=== PATIENT | male | born 1950 | race Caucasian/White ===

== ENCOUNTER 2021-02-23 07:29 | Outpatient (CLI) | payer MEDICARE, SELFPAY ==
--- NOTE | 2021-02-23 07:38 | USCV_ITS ---
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 Features of extensive arterio sclerosis Dr Drea Koehler MD [facility] (Electronically Signed) Final Date: 23 February 2021 20:16 S
== END 2021-02-23 07:30 | disposition home or self-care (01) ==
LOC: RAD 07:33
PROVIDERS: PCP General Practice; Visit Provider Family Medicine
DX: R09.89 Other specified symptoms and signs involving the circulatory and respiratory systems (principal)
CPT/HCPCS: 93922

== ENCOUNTER 2021-10-02 10:35 | Inpatient (IN) | payer MEDICARE, SELFPAY ==
[2021-10-02] VITALS (10 sets, daily range): BP systolic 112–149; BP diastolic 69–81; PULSE 48–58; RESP 14–22; TEMP 36.5–36.7; O2SAT 91–95; BMI 40.7; BMI 41.3
--- NOTE | 2021-10-02 10:53 | ECG_ITS ---
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 Measurements Intervals [place] Rate: 52 P: 44 AK: 164 QRS: -16 QRSD: 103 T: 28 QT: 416 QTc: 387 Interpretive Statements SINUS BRADYCARDIA INTERPRETATION BASED ON A DEFAULT AGE OF 40 YEARS No previous ECG available for comparison Electronically Signed On 10-03-2021 0:44:44 CDT by Drea Koehler M.D. [email or web address] Systemsmerit health centralScoutziechildren's hospital of columbusAMEC/store/Om/[id number]/[id number]
--- NOTE | 2021-10-02 10:55 | XRR_ITS ---
PROCEDURE INFORMATION: Exam: XR Chest Exam date and time: 10/02/2021 11:06 AM Age: 71 years old Clinical indication: Pain; Angina pectoris; Additional info: Chest pain TECHNIQUE: Imaging protocol: Radiologic exam of the chest. Views: 1 view. COMPARISON: CT cervical spin wo con* [id number] 09/28/2016 2:23 PM FINDINGS: Lungs: Unremarkable. No consolidation. Pleural spaces: Unremarkable. No pleural effusion. No pneumothorax. Heart/Mediastinum: Unremarkable. No cardiomegaly. Bones/joints: Unremarkable. XR/XR chest 1V portable [id number] IMPRESSION: No acute findings.
[2021-10-02 11:16] LABS: Basophils # 0.1 10^3/uL (0.0-0.1); Basophils % 1.2 %; Eosinophils # 0.6 10^3/uL (0.0-0.8); Eosinophils % 7.5 %; Hematocrit 47.6 % (42.0-52.0); Lymphocytes # 1.6 10^3/uL (0.8-4.8); Mean Corpuscular HGB Conc 33.6 g/dL (30.0-36.0); Mean Corpuscular Hemoglobin 29.5 pg (28.0-34.0); Mean Corpuscular Volume 87.8 fl (80-94); Mean Platelet Volume 10.5 fL (7.4-10.4); Monocytes # 0.7 10^3/uL (0.2-0.9); Monocytes % 8.9 %; Neutrophils # 4.51 10^3/uL (1.8-7.7); Neutrophils % 60.9 %; Nucleated Red Blood Cells % 0 %; Platelet Count 197 10^3/cmm (130-400); Red Blood Count 5.42 10^6/uL (4.1-5.3); Red Cell Distribution Width 13.2 % (12.1-15.1); White Blood Count 7.4 10^3/uL (4.0-10.0)
[2021-10-02 11:37] LABS: Partial Thromboplastin Time 27.6 SECONDS (23.9-36.7)
[2021-10-02 11:59] LABS: Alanine Aminotransferase 32 U/L (0-41); Albumin Level 4.6 g/dL (3.5-5.2); Alkaline Phosphatase 79 IU/L (40-130); Aspartate Amino Transferase 23 U/L (0-40); Blood Urea Nitrogen 13 mg/dL (8-23); Calcium 9.8 mg/dL (8.5-10.5); Carbon Dioxide 24 mmol/L (22-29); Chloride 101 mmol/L (98-107); Globulin 3.1 g/dL (1.3-4.6); Glomerular Filtration Rate 73.9 mL/min (90-130); Glucose 160 mg/dL (65-115); Osmolality Calculated 290 mOsm/kg (285-295); Sodium 138 mmol/L (136-145); Total Bilirubin 0.6 mg/dL (0.15-1.2); Total Protein 7.7 g/dL (6.6-8.7)
[2021-10-02 12:02] LABS: Anion Gap 17.1 (5-19); Potassium 4.1 mmol/L (3.5-5.1); Troponin(5th) Baseline 16 ng/L (0-15)
--- NOTE | 2021-10-02 12:38 | PC.PHAR ---
pt states he takes care of his own medications-rx filled 07/29/21 90d/s for amlodipine 10mg daily another rx filled 09/22/21 90d/s for 2.5mg daily pt states 2.5mg was filled on accident pt states taking 10mg daily-notes are made in the pharmacy comments
--- NOTE | 2021-10-02 12:55 | ECG_ITS ---
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 Measurements Intervals [place] Rate: 47 P: 42 ND: 172 QRS: -1 QRSD: 107 T: 33 QT: 464 QTc: 412 Interpretive Statements SINUS BRADYCARDIA Compared to ECG 10/02/2021 14:13:40 No significant changes Electronically Signed On 10-03-2021 19:03:57 CDT by Sanju Taylor M.D. [email or web address] Divgreenwood leflore hospitalMeileleeast liverpool city hospitalCyprotex/store/OM/[id number]
--- NOTE | 2021-10-02 13:12 | W.ED.CHESTPA ---
HPI - Chest Pain General: Chief Complaint: Chest Pain Stated Complaint: chest pain Time Seen by Provider: 10/02/21 10:53 Source: patient Mode of arrival: ambulatory History of Present Illness: 71-year-old male presents to the emergency room with complaints of left-sided chest pain x4 days. No fever sweats chills cough congestion or shortness of breath he has noticed that with activity it is little worse with rest it is somewhat better. There is no radiation of the pain. He has no known history of coronary artery disease MD complaint: chest pain Onset (ago): day(s) (4) Timing of current episode: episodic Onset: during exertion Pain radiation: left arm Severity: moderate Quality: heaviness Relieving factors: rest Exacerbating factors: nothing Associated symptoms: Reports dyspnea; Deny abdominal pain, diaphoresis, fever(s), leg edema, nausea, palpitations, sense of impending doom, syncope or vomiting Treatment prior to arrival: none Risk Factors: Coronary artery disease risk factors: diabetes, smoking history, hyperlipidemia and hypertension Review of Systems Const: Denies: fever(s), chills, fatigue, malaise or diaphoresis ENMT: Denies: throat pain, ear or mastoid pain, nasal discharge or nasal congestion Card: Reports: chest pain; Denies: palpitations, irregular heart rhythm, edema or syncope Resp: Reports: dyspnea; Denies: productive cough or non-productive cough GI: Denies: abdominal pain, nausea or vomiting : Denies: flank pain, difficulty urinating, dysuria, urinary frequency or urinary urgency Skin/Breast: Denies: rash or pruritus [facility] PFSH: Medical History Diabetes mellitus Hyperlipidemia Hypertension Hypothyroidism Social History Smoking and tobacco status: never smoked Alcohol intake: never Physical Exam Const: GENERAL APPEARANCE: cooperative and comfortable ORIENTATION/CONSCIOUSNESS: Yes awake, Yes oriented to person, Yes oriented to place and Yes oriented to time HENMT: COMMON NORMALS: normocephalic, atraumatic and hearing grossly normal bilaterally HEAD & SCALP: normocephalic and atraumatic Resp: COMMON NORMALS: normal respiratory effort, No retractions, No use of accessory muscles and clear to auscultation bilaterally AUSCULTATION: clear to auscultation bilaterally Cardio: COMMON NORMALS: regular rate, regular rhythm and No murmurs present (Cardio) RATE: regular rate RHYTHM: regular rhythm GI: COMMON NORMALS: Soft to palpation and No hepatosplenomegaly present AUSCULTATION: Yes normoactive bowel sounds PALPATION: Yes Soft to palpation, No Tenderness to palpation present (GI), No Guarding due to palpation present (GI) and Yes No hepatosplenomegaly present Extremity: COMMON NORMALS: normal to inspection, capillary refill normal, no clubbing, cyanosis or edema, no calf tenderness and no pedal edema Neuro: SENSORIUM/ORIENTATION: Yes oriented to person, Yes oriented to place and Yes oriented to time Skin: COMMON NORMALS: no rashes or lesions noted GENERAL SKIN EXAM: no rashes or lesions noted Course Vital Signs: Vital signs: Vital Signs Temperature 98.1 F 10/02/21 10:45 Pulse Rate 53 L 10/02/21 13:48 Respiratory Rate 16 10/02/21 13:48 Blood Pressure 112/69 10/02/21 13:48 Pulse Oximetry 95 10/02/21 13:48 Oxygen Delivery Me thod 10/02/21 13:48 MDM - Chest Pain Medical Decision Making 71-year-old male he continues to have intermittent chest discomfort and very concerned with his presenting history he has a heart score of 6 or 7. Given that we will go ahead and put him on observation I discussed with Dr. Celis. His second troponin is negative and EKG shows nonspecific changes. He does tell me he had a cardiac stress test about 4 years ago at this facility but I cannot find any old records. Orders written for ops. Medical Records I reviewed the patient's medical records. Lab Data I reviewed the patient's lab results. : 10/02/21 11:04 10/02/21 11:04 Radiology Impressions Chest X-Ray 10/02/21 10:55 IMPRESSION: No acute findings. Laboratory Results WBC 7.4 10^3/uL (4.0-10.0) 10/02/21 11:04 RBC 5.42 10^6/uL (4.1-5.3) H 10/02/21 11:04 Hgb 16.0 g/dL (11.7-16.6) 10/02/21 11:04 Hct 47.6 % (42.0-52.0) 10/02/21 11:04 MCV 87.8 fl (80-94) 10/02/21 11:04 MCH 29.5 pg (28.0-34.0) 10/02/21 11:04 MCHC 33.6 g/dL (30.0-36.0) 10/02/21 11:04 RDW 13.2 % (12.1-15.1) 10/02/21 11:04 Plt Count 197 10^3/cmm (130-400) 10/02/21 11:04 MPV 10.5 fL (7.4-10.4) H 10/02/21 11:04 Neut % (Auto) 60.9 % 10/02/21 11:04 Lymph % (Auto) 21.0 % 10/02/21 11:04 [place] % (Auto) 8.9 % 10/02/21 11:04 Eos % (Auto) 7.5 % 10/02/21 11:04 Baso % (Auto) 1.2 % 10/02/21 11:04 Neut # (Auto) 4.51 10^3/uL (1.8-7.7) 10/02/21 11:04 Lymph # (Auto) 1.6 10^3/uL (0.8-4.8) 10/02/21 11:04 [place] # (Auto) 0.7 10^3/uL (0.2-0.9) 10/02/21 11:04 Eos # (Auto) 0.6 10^3/uL (0.0-0.8) 10/02/21 11:04 Baso # (Auto) 0.1 10^3/uL (0.0-0.1) 10/02/21 11:04 Nucleated RBC % (auto) 0 % 10/02/21 11:04 Nucleated RBCs # 0.0 /100WBC 10/02/21 11:04 PT 12.50 SECONDS (12.1-14.9) 10/02/21 11:04 INR 0.90 (0.8-1.2) 10/02/21 11:04 APTT 27.6 SECONDS (23.9-36.7) 10/02/21 11:04 Sodium 138 mmol/L (136-145) 10/02/21 11:04 Potassium 4.1 mmol/L (3.5-5.1) 10/02/21 11:04 Chloride 101 mmol/L (98-107) 10/02/21 11:04 Carbon Dioxide 24 mmol/L (22-29) 10/02/21 11:04 Anion Gap 17.1 (5-19) 10/02/21 11:04 BUN 13 mg/dL (8-23) 10/02/21 11:04 Creatinine 1.0 mg/dL (0.7-1.2) 10/02/21 11:04 GFR Calculation 73.9 mL/min (90-130) L 10/02/21 11:04 Glucose 160 mg/dL (65-115) H 10/02/21 11:04 Calculated Osmolality 290 mOsm/kg (285-295) 10/02/21 11:04 Calcium 9.8 mg/dL (8.5-10.5) 10/02/21 11:04 Total Bilirubin 0.6 mg/dL (0.15-1.2) 10/02/21 11:04 AST 23 U/L (0-40) 10/02/21 11:04 ALT 32 U/L (0-41) 10/02/21 11:04 Alkaline Phosphatase 79 IU/L (40-130) 10/02/21 11:04 Troponin T Baseline 16 ng/L (0-15) H 10/02/21 11:04 Troponin T 120 Minute 14.09 ng/L (0-15) 10/02/21 12:59 Delta Troponin T -1.91 ABS# (0-10) L 10/02/21 12:59 Total Protein 7.7 g/dL (6.6-8.7) 10/02/21 11:04 Albumin 4.6 g/dL (3.5-5.2) 10/02/21 11:04 Globulin 3.1 g/dL (1.3-4.6) 10/02/21 11:04 Discharge Plan Discharge Prescriptions: No Action atorvastatin 40 mg tablet 40 mg PO QAM bisoprolol-hydrochlorothiazide 10-6.25 mg tablet 1 tab PO QAM Aspir-81 81 mg Tablet,Delayed Release (Dr/Ec) 81 mg PO QAM amlodipine 10 mg tablet 10 mg PO QAM levothyroxine 125 mcg tablet 125 mcg PO QAM niacin 500 mg Tablet 1,750 mg PO DAILY PRN (Reason: unknown) omeprazole 20 mg capsule,delayed release(DR/EC) 20 mg PO BEDTIME metformin 500 mg tablet extended release 24 hr 500 mg PO QAM Referrals: Himanshu Franco MD [Primary Care Provider] - Coding Level of Care Code ED Rubber Compounder Formulator for Chg Fwd Exam Detailed
[2021-10-02 13:36] LABS: Troponin 5 2HR 14.09 ng/L (0-15)
[2021-10-02 13:46] LABS: Troponin 5 2HR Delta -1.91 ABS# (0-10)
--- NOTE | 2021-10-02 14:13 | ECG_ITS ---
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 Measurements Intervals [place] Rate: 45 P: 48 NE: 170 QRS: -6 QRSD: 105 T: 27 QT: 445 QTc: 389 Interpretive Statements SINUS BRADYCARDIA Compared to ECG 10/02/2021 10:43:31 No significant changes Electronically Signed On 10-03-2021 0:57:29 CDT by Drea Koehler M.D. https://[employer].Level 5 Networksmethodist rehabilitation centerEagle Creek Renewable Energysumma health akron campusTimeline Labs / TLL/store/OM/[id number]/[id number]
[2021-10-02] MEDS: aspirin 81 mg Chew Tablet 324 MG PO (14:22)
[2021-10-02] MEDS: nitroglycerin 1 gm/inch oint Pkt 0.5 INCH TOPICAL (14:22)
--- NOTE | 2021-10-02 15:50 | PM.HP ---
Providers/Chief Complaint Admitting Physician: Ginette Russ MD Primary Care Provider: Himanshu Franco MD Chief Complaint: chest pain History of Present Illness James Villalta is a 71 year old male with a past medical history of diabetes mellitus, hypertension, presenting to the emergency room today with complaints of chest pain. Patient states pain started yesterday afternoon, it was at rest. 4 out of 10 in intensity, nonradiating. Located in the center of the chest, described as heaviness. Has a history of similar chest pain 4 years ago at which time he underwent a stress test, per her report this was reportedly normal. He has no prior history of coronary artery disease. Denies any recent cough dyspnea, or URI symptoms. No fever. Reports diaphoresis at the time of onset of chest pain. He currently has a nitro patch on and is chest pain-free. EKG shows sinus bradycardia. No acute ST-T wave changes. Review of Systems General: Reports: 10 or more systems reviewed and unremarkable except in HPI and below Const: Denies: fever(s), chills or body aches Eyes: Denies: change in vision, blurry vision or photophobia ENMT: Reports: hoarseness; Denies: throat pain, enlarged tonsils, odynophagia or nasal congestion Card: Denies: chest pain, palpitations, irregular heart rhythm, edema, swelling of feet/ankles, lightheadedness, pre-syncope, dyspnea on exertion or orthopnea Resp: Denies: dyspnea, productive cough, non-productive cough, wheezing, stridor, pain on inspiration, change in phlegm color, hemoptysis or chest congestion GI: Denies: abdominal pain, nausea, vomiting, hematemesis, coffee ground emesis, dysphagia, heartburn, diarrhea, constipation, GI cramping, change in stool character, hematochezia or melena : Denies: flank pain, dysuria, urinary frequency, urinary urgency, urinary hesitancy or hematuria Musc: Denies: neck pain, back pain, extremity pain, joint swelling, joint warmth or deformity Neuro: Denies: headache(s), numbness in extremities, weakness in extremities, sensory changes, difficulty walking, frequent falls, dizziness, vertigo, behavioral changes, Slurred speech present or seizure-like activity Psych: Denies: anxiety, depression, suicidal ideation or homicidal ideation Endo: Denies: polyuria, polydipsia, tired all the time, cold intolerance or hot flashes Tyler/Lymph: Denies: easy bruising or easy bleeding Medications/Allergies Home Medications Medication Instructions Recorded Confirmed Last Taken Type amlodipine 10 mg tablet 10 mg PO QA 10/02/21 10/02/21 10/02/21 08:30 History see pharmacy comment aspirin 81 mg tablet,delayed 81 mg PO QA 10/02/21 10/02/21 10/02/21 History release 325 mg atorvastatin 40 mg tablet 40 mg PO QA 10/02/21 10/02/21 10/02/21 08:30 History bisoprolol 10 1 tab PO QA 10/02/21 10/02/21 10/02/21 08:30 History mg-hydrochlorothiazide 6.25 mg tablet levothyroxine 125 mcg tablet 125 mcg PO [facility] 10/02/21 10/02/21 10/02/21 History metformin 500 mg tablet,extended 500 mg PO [facility] 10/02/21 10/02/21 10/02/21 08:30 History release 24 hr niacin 500 mg tablet 1,750 mg PO DAILY PRN unknown 10/02/21 10/02/21 10/01/21 History omeprazole 20 mg capsule,delayed 20 mg PO BEDTIME 10/02/21 10/02/21 10/01/21 History release Allergies Allergy/AdvReac Type Severity Reaction Status Date / Time No Known Allergies Allergy Verified 10/02/21 12:28 PFSH Acute PFSH: Medical History Diabetes mellitus Hyperlipidemia Hypertension Hypothyroidism Social History Smoking and tobacco status: never smoked Alcohol intake: never Vitals/I&O/Wt Last Vital Signs Temp 98.1 F 10/02/21 10:45 Pulse 53 L 10/02/21 13:48 Resp 16 10/02/21 13:48 BP 112/69 10/02/21 13:48 Pulse Ox 95 10/02/21 13:48 O2 Del Method 10/02/21 13:48 Weight last 48 hrs Weight 117.934 kg Physical Exam Narrative: General: No acute distress, AO x3 HEENT: PERRLA, pupils bilaterally equal and reactive, pallors not present Chest: Normal vesicular breath sounds, no added sounds, equal good air entry bilaterally CVS: S1-S2 regular, no murmurs, no tachycardia, no gallops, no rubs Abdomen: Soft, nontender, no organomegaly, bowel sounds present Neuro: No focal deficits, no facial deformity, AO x3, power 5/5 in all limbs Extremities: no edema clubbing Data : 10/02/21 11:04 10/02/21 11:04 A&P Assessment and plan (1) Chest pain: Patient with multiple cardiovascular risk factors presenting today with chest pain that started yesterday. It has been intermittent in nature. EKG without acute ST-T wave changes Shows sinus bradycardia with a heart rate of 57 bpm. We will hold his beta-blockers for now. Series without significant delta at 2 hours. Will trend at 6 hours. If troponin remains without significant elevation then will likely proceed with stress test tomorrow. Continue antihypertensives. Continue levothyroxine. Continue aspirin and statin. Status: Acute Attestations Medical Necessity Statement*: Anticipate less than 2 midnight stay for the evaluation of chest pain, appears to be anginal. Coding Level of Care Code Acute Sprue Cutting Press Operator for mihir Ibarra Diagnoses Chest pain R07.9
[2021-10-02 16:25] LABS: NT Pro B Type Natriuretic Pept 148 pg/mL (0-125)
[2021-10-02 17:59] LABS: Troponin 5 6HR 15.42 ng/L (0-15)
[2021-10-02 18:01] LABS: Troponin 5 6HR Delta -0.58 ng/L (0-12)
[2021-10-02 18:04] LABS: D Dimer 0.56 ug/mIFEU (0-0.59)
[2021-10-02] MEDS: morphine 4 mg/mL SDV 1 mL 2 MG IVP ×2 (19:18→23:04)
[2021-10-02] MEDS: pantoprazole DR 40 mg Tablet PO (20:39)
[2021-10-02] MEDS: acetaminophen 325 mg Tablet 650 MG PO (23:08)
[2021-10-03] VITALS (12 sets, daily range): BP systolic 111–149; BP diastolic 71–85; PULSE 51–66; RESP 18–20; TEMP 36.4–36.9; O2SAT 92–97
--- NOTE | 2021-10-03 | ECG_ITS ---
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 Interpretive Statements NAME OF STUDY: LEXISCAN SESTAMIBI STRESS TEST INDICATION: Chest Pain PROCEDURE: At the baseline, the blood pressure was 150/88 mmHg, oxygen saturation 90% with a heart rate of 58 bpm. The electrocardiogram showed sinus bradycardia, nonspecific T wave inversion in lead III. The Lexiscan was infused over a period of 20 seconds. A total of 0.4 milligrams of Lexiscan was infused. The stress phase was continued for a total of 5 minutes. Heart rate at the end of the stress phase was 49 bpm, oxygen saturation 91% with a blood pressure of 123/78 mmHg. The EKG at the peak infusion revealed sinus bradycardia with no significant ST-T wave changes. The study was terminated per protocol completion. Sestamibi was injected 20 seconds after the Lexiscan infusion. Blood pressure at the end of the recovery phase was 149/80 mmHg, oxygen saturation 93% with a heart rate of 61 beats per minute. CONCLUSION: 1. No significant EKG changes with the LexiScan infusion. 2. No LexiScan induced chest pain or cardiac arrhythmia. 3. Normal blood pressure and heart rate response. 4. Sestamibi/sestamibi perfusion scan pending; see separate report. Electronically Signed On 10-03-2021 9:47:05 CDT by Amita Marti M.D. [email or web address] [employer] [place].MemfoACTva pal[facility] al[facility] hospital.[employer]/store/OM/[id number]/[email or web address]/[id number]
[2021-10-03 03:29] LABS: Basophils # 0.1 10^3/uL (0.0-0.1); Basophils % 1.1 %; Eosinophils # 0.6 10^3/uL (0.0-0.8); Eosinophils % 7.5 %; Hematocrit 42.9 % (42.0-52.0); Hemoglobin 14.3 g/dL (11.7-16.6); Lymphocytes # 1.9 10^3/uL (0.8-4.8); Mean Corpuscular HGB Conc 33.3 g/dL (30.0-36.0); Mean Corpuscular Hemoglobin 29.7 pg (28.0-34.0); Mean Platelet Volume 10.9 fL (7.4-10.4); Monocytes # 0.8 10^3/uL (0.2-0.9); Monocytes % 9.2 %; Neutrophils # 5.02 10^3/uL (1.8-7.7); Neutrophils % 59.6 %; Nucleated Red Blood Cells % 0 %; Platelet Count 183 10^3/cmm (130-400); Red Blood Count 4.82 10^6/uL (4.1-5.3); Red Cell Distribution Width 13.5 % (12.1-15.1); White Blood Count 8.4 10^3/uL (4.0-10.0)
[2021-10-03 03:52] LABS: Anion Gap 14.6 (5-19); Blood Urea Nitrogen 14 mg/dL (8-23); Calcium 9.1 mg/dL (8.5-10.5); Carbon Dioxide 26 mmol/L (22-29); Chloride 102 mmol/L (98-107); Glomerular Filtration Rate 83.4 mL/min (90-130); Glucose 149 mg/dL (65-115); Osmolality Calculated 291 mOsm/kg (285-295); Potassium 3.6 mmol/L (3.5-5.1); Sodium 139 mmol/L (136-145)
[2021-10-03] MEDS: metformin XR 500 MG Tablet PO (05:44)
[2021-10-03] MEDS: levothyroxine 125 mcg Tablet PO (05:44)
[2021-10-03] MEDS: amlodipine 10 mg Tablet PO (05:44)
[2021-10-03] MEDS: aspirin 81 mg EC Tablet PO (05:44)
[2021-10-03] MEDS: atorvastatin 40 mg Tablet PO (05:44)
--- NOTE | 2021-10-03 07:00 | NMCV_ITS ---
NM rony perf SPECT r/s* [id number] James Villalta Age: 71 Gender: M : 1950 Exam Date: 10/03/2021 07:00 Ordering Phys: Ginette Russ MD Technologist: AURELIA Lopez Exam Location: [facility] Indications: CHEST PAIN STRESS TEST Please [facility] IMAGE PROTOCOL Rest/Stress 1 Lexiscan Day Radiopharmaceutical Dose (mCi) Administration Site Administered by Rest: Tc-99m 10.9 IV AURELIA Al Sestamibi Stress:Tc-99m 33.0 IV AURELIA Al Sestamibi Rest: 03-Oct-2021 60 Discovery 630 Stress: 03-Oct-2021 30 Discovery 630 0.4mg Lexiscan. Images obtained in supine and prone position. SPECT RESULTS Technical Quality: Excellent Raw Data Analysis: Normal Image Corrections: No attenuation or motion correction applied Summed Stress Score: 2 Summed Rest Score: 0 Summed Difference Score: 2 PERFUSION FINDINGS Small sized perfusion abnormality of mild severity of basal inferolateral wall on stress images. FUNCTIONAL RESULTS (calculated via Gated SPECT) Stress Image LV EF (%): 67 Stress EDV (mL):131 TID: 0.89 Stress ESV (mL):43 FUNCTIONAL FINDINGS: The left ventricle is normal in size. Transient Ischemia Dilatation of 0.89. There is normal left ventricular systolic function. The left ventricular ejection fraction is normal with a value of 67%. There is normal left ventricular wall thickening with no regional wall motion abnormality. Normal end-diastolic and end-systolic volume. IMPRESSIONS 1. Small sized reversible perfusion abnormality of mild severity of basal inferolateral wall. 2. This may represent small area of ischemia in circumflex artery territory. 3. Overall left ventricular systolic function is normal without regional wall motion abnormalities, LVEF=67%. 4. No EKG changes with Lexiscan infusion. Refer to separate report for details. Amita Marti MD (Electronically Signed) Final Date: 03 October 2021 09:47 S
[2021-10-03] MEDS: regadenoson 0.4 Mg/5 ml Syringe IVP (07:23)
[2021-10-03] MEDS: ondansetron 2 mg/ML SDV 2 mL 4 MG IVP (07:39)
[2021-10-03 11:45] LABS: Free T4 Free Thyroxine 0.73 ng/dL (0.82-1.77); T3 Free 2.8 PG/ML (2.0-4.4)
[2021-10-03] MEDS: nitroglycerin 0.4 mg sublingual Tablet SUBLINGUAL ×3 (12:10→16:20)
[2021-10-03] MEDS: morphine 4 mg/mL SDV 1 mL 2 MG IVP (12:11)
--- NOTE | 2021-10-03 13:14 | P.PN_ITS ---
Subjective Subjective: Complains of continued chest pain this morning. Unwilling to take a nitro patch or morphine stating that they are not helping. Stress test completed this morning which showed a small size reversible perfusion abnormality of mild severity in the basal inferolateral wall. May represent a small area of ischemia in the circumflex artery territory. Normal ventricular systolic function with LVEF of 67%. No regional wall motion abnormalities. Vitals/I&O/Wt Last Vital Signs Temp 97.6 F 10/03/21 11:50 Pulse 60 10/03/21 11:50 Resp 20 H 10/03/21 11:50 BP 125/85 10/03/21 11:50 Pulse Ox 93 10/03/21 11:50 O2 Del Method 10/03/21 11:50 O2 Flow Rate 3 10/02/21 21:52 10/02/21 10/03/21 10/03/21 22:59 06:59 14:59 Intake Total 480 / 480 480 / 960 360 / 360 Balance 480 / 480 480 / 960 360 / 360 Weight last 48 hrs Weight 123.377 kg Weight 117.934 kg Physical Exam Narrative: General: No acute distress, AO x3 HEENT: PERRLA, pupils bilaterally equal and reactive, pallors not present Chest: Normal vesicular breath sounds, no added sounds, equal good air entry bilaterally CVS: S1-S2 regular, no murmurs, no tachycardia, no gallops, no rubs Abdomen: Soft, nontender, no organomegaly, bowel sounds present Neuro: No focal deficits, no facial deformity, AO x3, power 5/5 in all limbs Extremities: no edema clubbing Data : 10/03/21 02:58 10/03/21 02:58 A&P Assessment and plan (1) Chest pain: Patient with multiple cardiovascular risk factors presenting today with chest pain that started yesterday. EKG without acute ST-T wave changes. Troponin series without significant delta at 2 and 6 hours. Abnormal stress test as noted above. Ongoing chest pain. Will obtain cardiology consult to assess for need for left heart cath. Add Imdur 30 mg p.o. daily for ongoing chest pain. Unwilling to try patch or sublingual nitro Status: Acute Attestations Medical Necessity Statement*: pending cardiology assessment after abnormal stress test Coding Level of Care Code Acute Special Education Teachers for Waleska Ibarra Diagnoses Chest pain R07.9
[2021-10-03] MEDS: isosorbide mononitrate ER 30 mg Tablet PO (13:41)
--- NOTE | 2021-10-03 16:57 | P.CONIM_ITS ---
Providers/Reason For Consult Consulting Physician/Specialty*: Dr. Marti, Cardiology Reason for Consult*: Chest pain, abnormal stress test Attending Physician: Ginette Russ MD Primary Care Provider: Himanshu Franco MD History of Present Illness History of Present Illness James Villalta is a 71 year old male with PMHx of HTN, DM-2, hypothyroidism and hyperlipidmia presented for evaluation of chest pain on and off for past week. Chest pain in and off 7-10/04 in intensity that for past day or two has been with/without exertion and lasting whole day. EKG showed sinus bradycardia with no significant ST-T wave changes. Troponin T 16--> 14--> 15. He had stress test with small area of reversibility in basal IL wall. He continues to complain of chest pain on and off. 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 He has been started on imdur 30 mg daily. At the time of examination, he is CP gree. Father with h/o stents and with IL in his 7-'s and Mother with h/o CVA. Review of Systems Const: Denies: fever(s), chills, change in appetite, change in weight, fatigue or malaise Eyes: Denies: change in vision or eye discharge ENMT: Denies: throat pain, swelling of lips/tongue, oral sores, bleeding gums, nasal congestion, epistaxis or post nasal drip Card: Reports: chest pain and palpitations; Denies: irregular heart rhythm, edema, lightheadedness, syncope, dyspnea on exertion, orthopnea or leg pain with exertion Resp: Reports: dyspnea; Denies: productive cough, wheezing or hemoptysis GI: Denies: abdominal pain, nausea, vomiting, hematemesis, heartburn, diarrhea, constipation, change in bowel habits, hematochezia or melena : Denies: dysuria, oliguria, hematuria, scrotal swelling or erectile dysfunction Musc: Denies: back pain, extremity swelling, joint pain or muscle weakness Skin/Breast: Denies: rash, erythema, new lesions or change in hair Neuro: Denies: numbness in extremities, weakness in extremities, lack of coordination, difficulty walking, dizziness, vertigo or confusion Psych: Denies: anxiety, depression, irritability, suicidal ideation or homicidal ideation Endo: Denies: tired all the time, cold intolerance or heat intolerance Tyler/Lymph: Denies: easy bruising, easy bleeding, petechiae or purpura All/Imm: Denies: throat swelling, tongue swelling or acute wheezing Medications/Allergies Home Medications Medication Instructions Recorded Confirmed Last Taken Type amlodipine 10 mg tablet 10 mg PO QAM 10/02/21 10/02/21 10/02/21 08:30 History see pharmacy comment aspirin 81 mg tablet,delayed 81 mg PO QA 10/02/21 10/02/21 10/02/21 History release 325 mg atorvastatin 40 mg tablet 40 mg PO QA 10/02/21 10/02/21 10/02/21 08:30 History bisoprolol 10 1 tab PO QA 10/02/21 10/02/21 10/02/21 08:30 History mg-hydrochlorothiazide 6.25 mg tablet levothyroxine 125 mcg tablet 125 mcg PO QA 10/02/21 10/02/21 10/02/21 History metformin 500 mg tablet,extended 500 mg PO [facility] 10/02/21 10/02/21 10/02/21 08:30 History release 24 hr niacin 500 mg tablet 1,750 mg PO DAILY PRN unknown 10/02/21 10/02/21 10/01/21 History omeprazole 20 mg capsule,delayed 20 mg PO BEDTIME 10/02/21 10/02/21 10/01/21 History release Allergies Allergy/AdvReac Type Severity Reaction Status Date / Time No Known Allergies Allergy Verified 10/02/21 12:28 Current Medications Generic Name Dose Route Start Last Admin Trade Name Karthikeyan PRN Reason Stop Dose Admin Acetaminophen 650 mg 10/02/21 15:46 10/02/21 23:08 Acetaminophen 325 Mg Tablet PO 650 mg Q6H PRN Administration Mild/Mod Pain Or Temp >/= 101 Amlodipine Besylate 10 mg 10/03/21 06:00 10/03/21 05:44 Amlodipine 10 Mg Tablet PO 10 mg QAM SHER Administration Aspirin 81 mg 10/03/21 06:00 10/03/21 05:44 Aspirin 81 Mg Ec Tablet PO 81 mg QAM SHER Administration Atorvastatin Calcium 40 mg 10/03/21 06:00 10/03/21 05:44 Atorvastatin 40 Mg Tablet PO 40 mg QAM SHER Administration Isosorbide Mononitrate 30 mg 10/03/21 13:30 10/03/21 13:41 Isosorbide Mononitrate Er 30 Mg Tablet PO 30 mg DAILY SHER Administration Levothyroxine Sodium 125 mcg 10/03/21 06:00 10/03/21 05:44 Levothyroxine 125 Mcg Tablet PO 125 mcg QAM SHER Administration Metformin HCl 500 mg 10/03/21 06:00 10/03/21 05:44 Metformin Xr 500 Mg Tablet PO 500 mg QAM SHER Administration Morphine Sulfate 2 mg 10/02/21 15:46 10/03/21 12:11 Morphine 4 Mg/Ml Sdv 1 Ml IVP 2 mg Q4H PRN Administration SEVERE PAIN Nitroglycerin 0.4 mg 10/03/21 06:35 10/03/21 16:20 Nitroglycerin 0.4 Mg Sublingual Tablet SUBLINGUAL 10/04/21 06:34 0.4 mg Q5M PRN Administration CHEST PAIN Ondansetron HCl 4 mg 10/03/21 06:35 10/03/21 07:39 Ondansetron 2 Mg/Ml Sdv 2 Ml IVP 4 mg Q2M PRN Administration NAUSEA Pantoprazole Sodium 40 mg 10/02/21 21:00 10/02/21 20:[address] 40 Mg Tablet PO 40 mg BEDTIME SHER Administration PFSH Acute PFSH: Medical History Diabetes mellitus Hyperlipidemia Hypertension Hypothyroidism Social History Smoking and tobacco status: never smoked Alcohol intake: never Vitals/I&O/Wt Last Vital Signs Temp 97.6 F 10/03/21 15:42 Pulse 62 10/03/21 15:42 Resp 18 10/03/21 15:42 BP 126/71 10/03/21 15:42 Pulse Ox 92 10/03/21 15:42 O2 Del Method 10/03/21 11:50 O2 Flow Rate 3 10/02/21 21:52 10/03/21 10/03/21 10/03/21 06:59 14:59 22:59 Intake Total 480 / 960 360 / 360 Balance 480 / 960 360 / 360 Weight last 48 hrs Weight 272 lb Weight 260 lb Physical Exam 2 Const: COMMON NORMALS: no acute distress, patient oriented x3 and alert GENERAL APPEARANCE: cooperative, comfortable, well kempt, well hydrated and other (obese) HENMT: COMMON NORMALS: hearing grossly normal bilaterally, external ears normal and moist oral mucous membranes FACE & SINUS: normal facial exam EXTERNAL EAR: Yes external ears normal Eye: COMMON NORMALS: EOMs intact bilaterally and no scleral icterus GENERAL EYE: appearance normal, both eyes and all related structures ALIGNMENT: Yes alignment normal Neck/C-Spine: COMMON NORMALS: no lymphadenopathy, supple and no JVD GENERAL: Yes normal visual inspection and Yes trachea midline CAROTIDS: Yes normal carotid upstroke Lymph: LYMPHATIC: no lymphadenopathy noted Chest: COMMONS NORMALS: normal inspection of the chest and normal palpation of entire chest wall CHEST: Yes Symmetrical chest wall rise and No tenderness Resp: COMMON NORMALS: clear to auscultation bilaterally EFFORT & INSPECTION: Yes able to speak in complete sentences, No tachypneic, No respiratory distress, No pursed lip breathing, No labored and No Actively coughing AUSCULTATION: clear to auscultation bilaterally, no crackles, no rales, no rhonchi and no wheezes Cardio: COMMON NORMALS: no JVD, regular rate, regular rhythm, S1 normal heart sound present, S2 normal heart sound present and Peripheral pulses 2+ throughout PALPATION: normal PMI RATE: regular rate RHYTHM: regular rhythm HEART SOUNDS: S1 normal heart sound present, S2 normal heart sound present, no click, no gallops and no murmurs BRUITS: no carotid bruits PERIPHERAL PULSES: Peripheral pulses 2+ throughout, radial pulses present, posterior tibial pulses present and dorsalis pedis present GI: COMMON NORMALS: Soft to palpation AUSCULTATION: Yes normoactive bowel sounds PALPATION: Yes Soft to palpation, No Tenderness to palpation present (GI), No Guarding due to palpation present (GI) and No Rigid due to palpation Extremity: GENERAL: No clubbing, No cyanosis, No edema and No pallor Neuro: COMMON NORMALS: patient oriented x3 and no focal motor deficits SENSORIUM/ORIENTATION: Yes alert Psych: COMMON NORMALS: Normal thought process present and speech normal APPEARANCE: Yes well kempt SPEECH: Yes normal speech MOOD & AFFECT: Yes euthymic mood THOUGHT PROCESS: Normal thought process present THOUGHT CONTENT: Yes Normal thought content present Data : 10/03/21 02:58 10/03/21 02:58 A&P Assessment and plan (1) Chest pain: Given multiple CAD risk factors, HTN, DM-2, HLD, family h/o CAD and high risk occupation with intermittent chest pains and mildly abnormal stress, I will set him up with [facility]. -increase imdur to 30 mg am and 15 mg pm. -may use NTG and morphine prn -Risks and benefits were discussed with the patients. Possible complications including risk of heart attack stroke and , coronary perforation, arrhythmia, cardiac tamponade in urgent CABG were discussed with the patient as well. -Plan is to proceed for the procedure at the earliest. 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
[2021-10-03] MEDS: isosorbide mononitrate ER 30 mg Tablet 15 MG PO (20:35)
[2021-10-03] MEDS: acetaminophen 325 mg Tablet 650 MG PO (20:36)
[2021-10-03] MEDS: pantoprazole DR 40 mg Tablet PO (20:37)
[2021-10-03] MEDS: enoxaparin 40 mg/0.4 mL Syringe SUBCUT (23:04)
[2021-10-04] VITALS (53 sets, daily range): BP systolic 103–184; BP diastolic 62–97; PULSE 49–93; RESP 12–31; TEMP 36.1–36.7; O2SAT 88–98
[2021-10-04 03:03] LABS: Basophils # 0.1 10^3/uL (0.0-0.1); Basophils % 0.6 %; Eosinophils # 0.4 10^3/uL (0.0-0.8); Eosinophils % 5.2 %; Hemoglobin 11.7 g/dL (11.7-16.6); Lymphocytes # 1.4 10^3/uL (0.8-4.8); Lymphocytes % 17.8 %; Mean Corpuscular HGB Conc 32.5 g/dL (30.0-36.0); Mean Corpuscular Hemoglobin 29.3 pg (28.0-34.0); Mean Corpuscular Volume 90.2 fl (80-94); Mean Platelet Volume 11.4 fL (7.4-10.4); Monocytes # 0.8 10^3/uL (0.2-0.9); Monocytes % 9.8 %; Neutrophils # 5.25 10^3/uL (1.8-7.7); Neutrophils % 66.2 %; Nucleated Red Blood Cells % 0 %; Platelet Count 167 10^3/cmm (130-400); Red Blood Count 3.99 10^6/uL (4.1-5.3); Red Cell Distribution Width 13.3 % (12.1-15.1); White Blood Count 7.9 10^3/uL (4.0-10.0)
[2021-10-04 03:22] LABS: Estmated Average Glucose 157; Hemoglobin A1C 7.1 % (4.0-6.0)
[2021-10-04] MEDS: diphenhydrAMINE 50 mg Capsule PO (04:49)
[2021-10-04] MEDS: sodium chloride 0.9% 1,000 ML 50 ML IV (04:50)
[2021-10-04] MEDS: aspirin 81 mg Chew Tablet 324 MG PO (04:50)
--- NOTE | 2021-10-04 06:00 | XACV_ITS ---
Exam Room: 2 Ht: 173 cm Wt: 123 kg BSA: 2.49 m2 Gender: Male : 1950 Any Known Allergies: No allergy information Exam Priority: Routine Procedure(s): Procedure Description: Diagnostic procedure Procedure Description: PCI procedure Procedure Description: Drug Eluting Coronary Stent Procedure Description: PTCA Procedure Description: Miscellaneous Procedure Description: ACT Procedure Description: Coronary Angiography Diagnostic Cath Status: Urgent Diagnostic Findings * Proximal Left Anterior Descending to Mid Left Anterior Descending: severe 90% stenosis, ROSARIO: 3 flow. This is heavily calcified. Distally there is severe, diffuse disease. * INDICATION: Chest pain/abnormal stress test. * Left Main has no disease. * Distal Left Anterior Descending: significant 80% stenosis, ROSARIO: 3 flow. * Mid Right Coronary Artery: minimal 30% stenosis, ROSARIO: 3 flow. * Distal Circumflex: significant 80% stenosis, ROSARIO: 3 flow. * 1st Diagonal: obstructive 60% stenosis, ROSARIO: 3 flow. * First Obtuse Marginal Branch Segment: critical 95% stenosis, ROSARIO: 3 flow. * Coronary angiography shows right dominance. PCI Status: Urgent PCI Indication: Other Interventional Findings * Procedure note: We engaged left main artery with XB 3.5 guide catheter. IV heparin was administered to maintain ACT above 250 S. 0.014 run-through guidewire was used to cross severe OM stenosis and was put in distal vessel. We predilated the stenosis with 2.5 x 12 mm semicompliant balloon. This was followed by placement of 3.5 x 15 mm resolute [place] drug-eluting stent. We postdilated with stent with 3.5 x 8 mm NC balloon. We then performed balloon angioplasty of the distal left circumflex artery. Flow did not improve significantly. Given distal site of stenosis, it was decided to medically manage it. At this time guidewire and guide catheters were removed and patient left the Optometrist/Practice Owner in a stable condition.. * Distal Circumflex: 80% stenosis treated with a AB TREK 2.50X12 RX BALLOON. 60% residual stenosis, ROSARIO: 3 flow. * First Obtuse Marginal Branch Segment: 95% stenosis treated with a AB TREK 2.50X12 RX BALLOON, MDT R MIKHAIL 3.5X15 CLAUDIO, and MDT NC EUPHORA RX [id number] BALLOON. 0% residual stenosis, ROSARIO: 3 flow. Conclusions 1. Severe OM1, left circumflex artery and 2. LAD stenosis. S/p successful revascularization of large sized OM1 stenosis. 3. LAD has severe, calcified diffuse disease. Stress test was not showing ischemia in this territory. If patient chest pain resolved with PCI of OM that was area of ischemia on stress test, we may treated medically. However if he continues having symptoms, will perform staged PCI of LAD with arthrectomy. 4. Distal Circumflex was treated with a Balloon. 5. First Obtuse Marginal Branch Segment was treated with a Balloon, Drug Eluting Stent, and Balloon. Recommendations * Continue dual antiplatelet therapy with aspirin and Plavix for at least 1 year. * High intensity statin therapy. * Patient continues having chest pain, we will proceed with PCI with arthrectomy of LAD. * Transfer back to ICU. Interventional RX Recommendation: PCI w/o planned CABG Diagnostic RX Recommendation: PCI w/o planned CABG Anticoagulation: Heparin Pressures Phase:Rest AO : 119 / 64 ( 87 ) @ 7:44:00 AM 116 / 73 ( 94 ) @ 7:54:00 AM 124 / 82 ( 103 ) @ 7:59:00 AM Clinical Evaluation EBL: 5mL-10mL Procedural Details Procedure Consent Obtained. Pre-Procedure Time Out. Identified patient by full name and date of as verbalized by the patient/guarantor. Does the consent match the physician's order: Yes. Accurate & Complete Informed Consent: Yes. Inpatient/Outpatient History & Physical on Chart: Yes. If H&P is completed, is and addenduem needed: No. Visualize and Verify Site with Patient/Guarantor: N/A. Relevant Radiology Images available: Yes. The risks, benefits, and alternatives of sedation and/or procedure were discussed by physician. The patient agrees to continue. Procedure started. [facility] Clinical Fraility Score: 3: Managing Well. Optometrist/Practice Owner Indications: New Onset Angina. Chest Pain Symptom Assessment: Typical Angina Symptoms. Cardiovascular Instability: No. Correct patient, site and procedure confirmed by cath team. PERRLA. Strong, equal hand eight arm operator bilaterally. Lungs clear x 5 lobes. IV Site on Arrival: 18 gauge in the left anticubital. IV Fluids: 0.9% NaCl at KVO. 0 mL infused prior to label drier. Pre Procedural Pulses: bilateral dorsalis pedis was 3+. Pre Procedural Pulses: bilateral posterior tibial was 3+. Pre Procedural Pulses: bilateral radial was 3+. Oxygen started at 2liters/min via nasal canula. right groin was prepped with chloroprep then draped in the usual sterile fashion. right radial was prepped with chloroprep then draped in the usual sterile fashion. Physician notified. Baseline sample Acquired. HR: 53 BPM. The patients spouse, Staci, is in the Optometrist/Practice Owner waiting room. Dr. Taylor will update at the completion of the case. Correct Patient: Yes; Correct Procedure: Yes; Correct Site: Yes; Correct Patient Position: Yes; Correct Supplies: Yes; Dried Flammable Prep: Yes; Blood Products Available: N/A. Physician scrubbed in. Physician arrived. Lidocaine 1% infiltrated to the right radial. Arterial access obtained. A 5 ghanaian TIG catheter in over wire. TIG catheter unable to advance, wire out, hand injection performed. Unable to use radial access, will move to right femoral access. Add inventory: Micropuncture Kit, 6 FR Sheath. Lidocaine 1% infiltrated to the right groin. A TR Band was successful obtaining hemostatsis at the Right Radial artery insertion site. TR band placed. Hemostasis obtained. Immediate Pre-Procedure Time Out. Catheter removed over the standard wire. Arterial access obtained with micropuncture set. A 5 ghanaian JL4 catheter in over wire. Multiple views taken of left coronary artery. Catheter removed over the standard wire. A 5 ghanaian JR4 catheter in over wire. Catheter redirected to the RCA. Multiple views taken of right coronary artery. Catheter removed over the standard wire. 6 ghanaian XB 4.5 guide catheter was inserted over the wire. Runthrough guidewire was advanced through the guide catheter to lesion in the OM. Inflation number : 1 A AB TREK 2.50X12 RX BALLOON was prepped and advanced across the 1st Ob [place] , then inflated to 12 JESSICA for 0:17 seconds. Balloon out. Inflation Number : 2 A RENETTA Shabazz MIKHAIL 3.5X15 CLAUDIO -Lot Number# [id number] was prepped and advanced across the 1st Ob [place]. The stent was deployed at 12 JESSICA for 0:20 seconds. Exp. 2024-01-27. Stent balloon out over wire. Inflation number : 3 A RENETTA HERNANDEZ EUPHORA RX [id number] BALLOON was prepped and advanced across the 1st Ob [place] , then inflated to 12 JESSICA for 0:16 seconds. Balloon out. Runthrough guidewire redirected to the Distal CX. Inflation number : 1 A AB TREK 2.50X12 RX BALLOON was prepped and advanced across the Dist CX , then inflated to 12 JESSICA for 0:26 seconds. Inflation number: 2 The AB TREK 2.50X12 RX BALLOON was reinflated across the Dist CX, to 12 JESSICA for 0:15 seconds. Balloon out. ACT drawn. Results 317 seconds. Therapeutic limits - pre-heparin administration 90-150 seconds and monitoring heparin during a vascular procedure >250 seconds. Runthrough guidewire pulled back into the guide catheter. Results checked. Wire out. Guide catheter out. Sheath(s) sutured into position with 2-0 silk and sterile 4x4's and Op-site applied over the site. No oozing or signs and symptoms of hematoma noted. Post Procedure: Pulses reassessed and unchanged. PERRLA. Strong, equal hand eight arm operator bilaterally. No VTE prophylaxis required. Total IV fluids: mL. Medication's Wasted: Nitro = 49.8 mg. Medication's Wasted: Heparin = 2000 units. A Suture was successful obtaining hemostatsis at the Right Femoral artery insertion site. Post-op diagnosis: PCI of the OM and PTCA of the Distal CX with diffuse severe disease in the LAD. Complications: none. Estimated blood loss: 5mL-10mL. Responsiveness - Normal response to verbal stimuli; alert and oriented, PERRLA. Airway - Unaffected, no intervention required; spontaneous ventilation. Circulation: W/N/L, pulses unchanged. Nausea/Vomiting: No. Procedure completed. Patient transferred by bed to 1st floor. Vital chart was stopped. Access Site Site: Right Radial artery Sheath Size: 6 Fr Hemostasis Method: TR Band Hemostasis Success: Successful Site: Right Femoral artery Sheath Size: 6 Fr Hemostasis Method: Suture Hemostasis Success: Successful Procedure Medications Start: 6:15 AM Stop: 6:15 AM Medication: Versed Amount: 1 mg Route: I.V. Start: 6:15 AM Stop: 6:15 AM Medication: Fentanyl Amount: 50 mcg Route: I.V. Start: 6:19 AM Stop: 6:19 AM Medication: Nitrogylcerin Amount: 200 mcg Route: I.A. Start: 6:44 AM Stop: 6:44 AM Medication: Heparin Amount: 21635 units Route: I.V. Start: 6:56 AM Stop: 6:56 AM Medication: Heparin Amount: 2000 units Route: I.V. Start: 7:08 AM Stop: 7:08 AM Medication: Plavix Amount: 600 mg Route: P.O. I, the attending physician, have reviewed and verified all procedure medications. Yes, all medications given per verbal order History/Risk Factors Hypertension: Yes Dyslipidemia: Yes Peripheral Arterial Disease (PAD): No Myocardial Infarction (RI): No Obesity: No Renal Disease: No Tobacco Use: Current/Recent(w/in 1 year) Prior Interventions PCI: No CABG: No Valve Surgery: No Report Signatures Finalized by Sanju Taylor MD on 10/14/2021 01:27 PM
--- NOTE | 2021-10-04 06:10 | PC.NURSE ---
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
--- NOTE | 2021-10-04 06:15 | W.PM.OPSUD ---
Surgery/Procedure H&P Update DATE OF PROCEDURE: October 04, 2021 DATE H&P PERFORMED: 10/04/21 H&P UPDATE INFORMATION: I have reviewed H&P completed within last 30 days, I have examined patient prior to procedure and No changes to prior documentation PREOP DIAGNOSIS: Worsening angina PRIMARY INDICATION FOR PROCEDURE: Worsening angina PLANNED PROCEDURE: Left heart cath with possible percutaneous coronary intervention PATIENT REASSESSED PRIOR TO SEDATION, WITH NO CHANGE NOTED: Yes PHYSICAL EXAM: alert, oriented x 3, clear to auscultation bilaterally and regular rate & rhythm AIRWAY EVAL/ANESTHESIA PLAN: ASA III, Local Anesthesia, Risks, benefits & alternatives of sedation and/or procedure discussed and Patient agrees to continue as planned ADDITIONAL INFORMATION: Moderate sedation
[2021-10-04] MEDS: isosorbide mononitrate ER 30 mg Tablet PO (09:09)
[2021-10-04] MEDS: levothyroxine 125 mcg Tablet PO (09:09)
[2021-10-04] MEDS: amlodipine 10 mg Tablet PO (09:09)
[2021-10-04] MEDS: atorvastatin 40 mg Tablet 80 MG PO (09:09)
[2021-10-04] MEDS: sodium chloride 0.9% 1,000 ML 100 ML IV ×2 (09:10→18:37)
--- NOTE | 2021-10-04 09:32 | P.PN_ITS ---
Subjective Subjective: Patient has a round of chest discomfort. He underwent successful revascularization of a large OM branch with CLAUDIO x1. Vitals/I&O/Wt Last Vital Signs Temp 98.0 F 10/04/21 04:00 Pulse 55 L 10/04/21 09:15 Resp 14 10/04/21 09:15 BP 127/75 10/04/21 09:15 Pulse Ox 95 10/04/21 09:15 O2 Del Method 10/03/21 20:00 O2 Flow Rate 3 10/02/21 21:52 10/03/21 10/04/21 10/04/21 22:59 06:59 14:59 Intake Total 440 / 800 480 / 1280 Balance 440 / 800 480 / 1280 Weight last 48 hrs Weight 272 lb Weight 260 lb Physical Exam Narrative: GENERAL: Patient is alert, awake and oriented x3. [] NECK: No jugular vein distension. [] HEENT: No cyanosis. No icterus. No pallor. [] HEART: Regular S1 and S2. No murmur, rub or gallop. [] LUNGS: Clear to auscultate bilaterally. [] ABDOMEN: Soft, nontender and nondistended. Positive bowel sounds. No guarding, rebound or tenderness. [] CENTRAL NERVOUS SYSTEM: Grossly nonfocal. [] EXTREMITIES: Lower extremities with no edema bilaterally. Pulses palpable in the lower extremities, both dorsalis pedis and posterior tibial. [] Data : 10/05/21 04:11 10/05/21 04:11 A&P Assessment and plan (1) Chest pain: Status: Acute (2) Abnormal stress test: Status: Acute (3) Hypertension: Status: Acute (4) Hyperlipidemia: Status: Acute (5) Diabetes mellitus: Status: Acute (6) Hypothyroidism: Status: Acute Plan Patient underwent successful revascularization of large OM branch today. However patient continues having on and off chest discomfort. It has some atypical features. Patient has residual severe disease of LAD which is diffuse. No good bypass targets. Given patient is still having chest discomfort, we will plan on revascularization of LAD with arthrectomy and PCI. Continue aspirin and Plavix. Nitro drip as needed. High intensity statin therapy. Blood pressure control. Echo shows normal LV systolic function. Thank you for involving us with care of this patient. We will continue to follow. Please call with questions Attestations Medical Necessity Statement*: Care expected to cross 2 midnights. Patient had presented with anginal symptoms. He underwent successful revascularization of OM today. Plan for staged LAD revascularization with arthrectomy and PCI tomorrow. Coding Level of Care Code Acute Commercial Maintenance Technician for Yanickg Fwd Diagnoses Chest pain R07.9 Abnormal stress test R94.39 Hypertension I10 Hyperlipidemia E78.5 Diabetes mellitus E11.9 Hypothyroidism E03.9
[2021-10-04] MEDS: aspirin 81 mg Chew Tablet PO (10:04)
[2021-10-04] MEDS: nitroglycerin 0.4 mg sublingual Tablet SUBLINGUAL ×3 (10:07→14:31)
[2021-10-04 10:13] LABS: Partial Thromboplastin Time > 250.0 SECONDS (23.9-36.7)
[2021-10-04 10:16] LABS: Alanine Aminotransferase 24 U/L (0-41); Albumin Level 3.4 g/dL (3.5-5.2); Alkaline Phosphatase 68 IU/L (40-130); Anion Gap 18.1 (5-19); Aspartate Amino Transferase 21 U/L (0-40); Blood Urea Nitrogen 14 mg/dL (8-23); Calcium 8.6 mg/dL (8.5-10.5); Carbon Dioxide 19 mmol/L (22-29); Chloride 101 mmol/L (98-107); Cholesterol 136 mg/dL (0-200); Globulin 2.7 g/dL (1.3-4.6); Glomerular Filtration Rate 73.9 mL/min (90-130); Glucose 183 mg/dL (65-115); HDL Cholesterol 34 mg/dL (60-100); LDL Cholesterol Calculated 85 mg/dL (50-129); LDL Cholesterol Direct 93 mg/dL (0-100); Osmolality Calculated 283 mOsm/kg (285-295); Potassium 4.1 mmol/L (3.5-5.1); Sodium 134 mmol/L (136-145); Total Bilirubin 0.6 mg/dL (0.15-1.2); Total Protein 6.1 g/dL (6.6-8.7); Triglycerides 84 mg/dL (0-150)
[2021-10-04] MEDS: morphine 4 mg/mL SDV 1 mL 2 MG IVP ×2 (10:28→14:22)
--- NOTE | 2021-10-04 10:31 | ECG_ITS ---
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 Measurements Intervals [place] Rate: 60 P: 58 MT: 160 QRS: -26 QRSD: 99 T: -1 QT: 428 QTc: 429 Interpretive Statements SINUS RHYTHM BORDERLINE LEFT AXIS DEVIATION [QRS AXIS < -20] Compared to ECG 10/02/2021 14:45:48 Sinus bradycardia no longer present Electronically Signed On 10-05-2021 18:49:00 CDT by Amita Marti M.D. [id number]
[2021-10-04] MEDS: ranolazine (12HR) 500 mg Tablet PO ×2 (11:57→18:31)
--- NOTE | 2021-10-04 14:35 | PC.NURSE ---
1419 pt states 8/10 chest pain returned. nitro given x2, morphine, notified dr patel. Orders received to put pt on nitro gtt. pt states some mild relief after medications. 5/10 pain
[2021-10-04] MEDS: nitroglycerin drip 50 MG/250 ML PREMIX 15 MG IV (14:43)
--- NOTE | 2021-10-04 14:47 | USCV_ITS ---
James Villalta Age: 71 Gender: M : 1950 Exam Date: 10/04/2021 15:00 Ordering Phys: Sanju Taylor M.D ([email or web address]) Technologist: KIRSTEN Exam Location: [facility] – [place] Indication: CHEST PAIN BP: 134 / 79 HR: 66 Rhythm: Sinus Technical Quality: Adequate MEASUREMENTS (Male / Female) Normal Values 2D ECHO LV Diastolic Diameter PLAX 4.8 cm 4.2 - 5.9 / 3.9 - 5.3 cm LV Systolic Diameter PLAX 3.5 cm IVS Diastolic Thickness 1.4 cm 0.6 - 1.0 / 0.6 - 0.9 cm IVS Systolic Thickness 2.2 cm LVPW Diastolic Thickness 1.4 cm 0.6 - 1.0 / 0.6 - 0.9 cm LVPW Systolic Thickness 2.1 cm LVOT Diameter 2.0 cm LV Ejection Fraction 2D Teich 51.0 % LV Ejection Fraction MOD 2C 76.0 % LV Ejection Fraction 2C AL 76.7 % LA Diameter 4.5 cm LA Width 3.9 cm LA Height 5.7 cm RA Width 3.2 cm RA Height 5.2 cm Aorta at Sinotubular Diameter 2.5 cm M-MODE Aortic Annulus Diameter 3.3 cm LA Ao Ratio MM 1.4 MV E Point Septal Separation 0.6 cm DOPPLER AV Peak Velocity 154.0 cm/s LVOT Peak Velocity 94.0 cm/s AV Area Cont Eq vti 2.3 cm squared AV Area Cont Eq pk 1.9 cm squared MV Peak Velocity 84.0 cm/s MV Area PHT 4.2 cm squared Mitral E to A Ratio 0.9 MV E' Velocity 39.0 cm/s Mitral E to MV E' Ratio 6.7 Mitral E to LV E' Lateral Ratio 5.6 Mitral E to LV E' Septal Ratio 8.4 TR Peak Velocity 164.6 cm/s TR Peak Gradient 10.8 mmHg TR Mean Velocity 109.4 cm/s TR Mean Gradient 5.7 mmHg TR Velocity Time Integral 36.5 cm TV Peak E Velocity 59.0 cm/s Right Atrial Pressure 8.0 mmHg Pulmonary Artery Systolic Pressu 18.8 mmHg PV Peak Velocity 105.0 cm/s RV Acceleration Time 0.1 s RV Ejection Time 0.3 s RV AcT/ET 0.2 FINDINGS Left Ventricle Normal left ventricular size. LV systolic function is normal with EF of 55-60%. No regional wall motion abnormalities. Right Ventricle The right ventricle is normal in size and function. Right Atrium The right atrium is normal in size. Left Atrium The left atrium is dilated Mitral Valve Structurally normal mitral valve without significant stenosis or prolapse. There is no mitral regurgitation. Aortic Valve Grossly normal. No significant stenosis. There is no aortic regurgitation. Tricuspid Valve Mild tricuspid regurgitation. Normal pulmonary artery systolic pressure. Pulmonic Valve Not well-visualized Pericardium Normal pericardium without effusion. Aorta Normal ascending aorta dimension. IVC CONCLUSIONS Technically limited quality echocardiogram because of poor ultrasonic windows. LV systolic function is normal with EF 55 to 60%. Left atrium is dilated. Mild tricuspid regurgitation. No comparison studies are available Sanju Taylor MD (Electronically Signed) Final Date: 05 October 2021 18:31 S
[2021-10-04] MEDS: perflutren protein-a microsphr 0.22 mg/mL SDV 3 mL IV (15:34)
--- NOTE | 2021-10-04 16:02 | ECG_ITS ---
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 Measurements Intervals [place] Rate: 72 P: 60 NH: 151 QRS: -27 QRSD: 106 T: 10 QT: 401 QTc: 439 Interpretive Statements SINUS RHYTHM BORDERLINE LEFT AXIS DEVIATION [QRS AXIS < -20] Non specific T wave abnormality Compared to ECG 10/04/2021 10:26:52 No significant changes Electronically Signed On 10-05-2021 18:44:05 CDT by Amita Marti M.D. [email or web address]
--- NOTE | 2021-10-04 19:05 | PC.NURSE ---
Sheath pulled 1715, complications, no hematoma, distal pulses 2+, extremity is warm, no abnormalities noted.
[2021-10-04] MEDS: isosorbide mononitrate ER 30 mg Tablet 15 MG PO (20:27)
[2021-10-04] MEDS: pantoprazole DR 40 mg Tablet PO (20:27)
[2021-10-04] MEDS: enoxaparin 40 mg/0.4 mL Syringe SUBCUT (20:30)
--- NOTE | 2021-10-04 21:33 | P.PN_ITS ---
Subjective Subjective: s/p angiogram this morning with findings s/o 99% OM stenosis + diffuse LAD disease. Planned for atherectomy for pLAD. Still with some ongoing chest pain, currently on nitro gtt Medications: Reviewed: Yes Vitals/I&O/Wt Last Vital Signs Temp 98.0 F 10/04/21 04:00 Pulse 60 10/04/21 21:15 Resp 19 H 10/04/21 21:15 BP 161/77 10/04/21 21:15 Pulse Ox 97 10/04/21 21:15 O2 Del Method 10/04/21 13:01 O2 Flow Rate 3 10/02/21 21:52 10/04/21 10/04/21 10/04/21 06:59 14:59 22:59 Intake Total 480 / 1280 1304.70 / 1304.70 Balance 480 / 1280 1304.70 / 1304.70 Physical Exam Narrative: General: No acute distress, AO x3 HEENT: PERRLA, pupils bilaterally equal and reactive, pallors not present Chest: Normal vesicular breath sounds, no added sounds, equal good air entry bilaterally CVS: S1-S2 regular, no murmurs, no tachycardia, no gallops, no rubs Abdomen: Soft, nontender, no organomegaly, bowel sounds present Neuro: No focal deficits, no facial deformity, AO x3, power 5/5 in all limbs Data : 10/04/21 02:42 10/04/21 09:16 A&P Assessment and plan (1) Chest pain: 71M with multiple cardiac risk factors presented with chest pain, had abnormal stress test. Now s/p angiogram this am with findings noted above. S/p PCI today. Possible atherectomy pLAD on 10/05 Currently on nitro gtt for ongoing chest pain. continue asa 81mg , add plavix 75mg po daily continue statin , ranexa beta blockers on hold due to sinus bradycardia. D dimer negative upon admission, less likely PE Status: Acute Attestations Medical Necessity Statement*: needs continued hospitalization for nitroglycerin infusion, ongoing chest pain, planned atherectomy Coding Level of Care Code Acute Scouring Train Operator Chief for Waleska Ibarra Diagnoses Chest pain R07.9
[2021-10-04] MEDS: nitroglycerin drip 50 MG/250 ML PREMIX 33 MG IV (23:36)
[2021-10-05] VITALS (76 sets, daily range): BP systolic 119–180; BP diastolic 46–95; PULSE 70–104; RESP 12–29; TEMP 36.7–36.9; O2SAT 90–97
--- NOTE | 2021-10-05 01:59 | PC.NURSE ---
Patient resting comfortably in bed, no signs of distress noted. Patient reporting CP 2-3/10.
[2021-10-05] MEDS: sodium chloride 0.9% 1,000 ML 100 ML IV ×3 (04:19→14:39)
[2021-10-05 04:25] LABS: Basophils # 0.1 10^3/uL (0.0-0.1); Basophils % 0.5 %; Eosinophils # 0.2 10^3/uL (0.0-0.8); Eosinophils % 1.8 %; Hematocrit 37.9 % (42.0-52.0); Hemoglobin 12.5 g/dL (11.7-16.6); Lymphocytes # 1.2 10^3/uL (0.8-4.8); Lymphocytes % 11.1 %; Mean Corpuscular Hemoglobin 29.4 pg (28.0-34.0); Mean Corpuscular Volume 89.2 fl (80-94); Mean Platelet Volume 10.7 fL (7.4-10.4); Monocytes # 1.1 10^3/uL (0.2-0.9); Monocytes % 10.1 %; Neutrophils # 7.92 10^3/uL (1.8-7.7); Neutrophils % 76.1 %; Nucleated Red Blood Cells % 0 %; Platelet Count 160 10^3/cmm (130-400); Red Blood Count 4.25 10^6/uL (4.1-5.3); Red Cell Distribution Width 13.2 % (12.1-15.1); White Blood Count 10.4 10^3/uL (4.0-10.0)
[2021-10-05 04:49] LABS: Alanine Aminotransferase 22 U/L (0-41); Albumin Level 3.8 g/dL (3.5-5.2); Alkaline Phosphatase 64 IU/L (40-130); Anion Gap 13.9 (5-19); Aspartate Amino Transferase 14 U/L (0-40); Blood Urea Nitrogen 12 mg/dL (8-23); Calcium 8.8 mg/dL (8.5-10.5); Carbon Dioxide 24 mmol/L (22-29); Chloride 104 mmol/L (98-107); Globulin 2.3 g/dL (1.3-4.6); Glomerular Filtration Rate 83.4 mL/min (90-130); Glucose 157 mg/dL (65-115); Osmolality Calculated 289 mOsm/kg (285-295); Potassium 3.9 mmol/L (3.5-5.1); Sodium 138 mmol/L (136-145); Total Bilirubin 0.8 mg/dL (0.15-1.2); Total Protein 6.1 g/dL (6.6-8.7)
[2021-10-05] MEDS: atorvastatin 40 mg Tablet 80 MG PO (05:13)
[2021-10-05] MEDS: amlodipine 10 mg Tablet PO (05:13)
[2021-10-05] MEDS: levothyroxine 125 mcg Tablet PO (05:13)
[2021-10-05] MEDS: nitroglycerin drip 50 MG/250 ML PREMIX 36 MG IV (06:13)
--- NOTE | 2021-10-05 08:41 | PC.NURSE ---
Nitroglycerin drip running at 100mcg/min at time of bedside report.
--- NOTE | 2021-10-05 09:10 | XACV_ITS ---
Exam Room: 2 Ht: 173 cm Wt: 123 kg BSA: 2.49 m2 Gender: Male : 1950 Any Known Allergies: No allergy information Exam Priority: Routine Procedure(s): Procedure Description: Diagnostic procedure Procedure Description: PCI procedure Procedure Description: Drug Eluting Coronary Stent Procedure Description: PTCA Procedure Description: Coronary Atherectomy Procedure Description: Miscellaneous Procedure Description: ACT Procedure Description: Coronary Angiography Diagnostic Cath Status: Urgent Diagnostic Findings * Left Main has no significant disease. * Circumflex has distal disease. OM stent is patent.. * RCA not injected.. * This is a staged procedure for revascularization of LAD. For full diagnostic report, please refer to procedure from 10/04/2021. * Proximal Left Anterior Descending to Mid Left Anterior Descending: severe 90% stenosis, ROSARIO: 3 flow. * Distal Left Anterior Descending to Distal Left Anterior Descending: significant 80% stenosis, ROSARIO: 3 flow. * Coronary angiography shows right dominance. PCI Status: Urgent PCI Indication: Other Interventional Findings * Procedure detail: We engaged left main artery with XB 3.5 guide catheter. Run-through guidewire was used to cross into the distal vessel. Using TelePort microcatheter, we exchanged wires to a Viper wire. Orbital atherectomy was performed from proximal to mid LAD. Using TelePort catheter, we exchanged wire again to run-through. This was followed by balloon angioplasty of proximal to mid LAD with 2.75 x 20 mm semicompliant balloon. We then placed a 3.0 x 38 mm resolute [place] drug-eluting stent at proximal to mid LAD. Stent was expanded with 3.75 x 15 mm NC balloon in the proximal segment. Distal LAD underwent balloon angioplasty with 2.0 x 30 mm semicompliant balloon. At this time final angiogram was performed which showed excellent stent expansion, no residual stenosis and ROSARIO-3 flow. Guidewire and guide catheter were removed. Patient left the Banking Specialist in a stable condition.. * Proximal Left Anterior Descending to Mid Left Anterior Descendin% stenosis treated with a AB TREK 2.75X20 RX BALLOON, MDT R MIKHAIL 3.0X38 CLAUDIO, and MDT MARY EUPHORA RX [id number] BALLOON. 0% residual stenosis, ROSARIO: 3 flow. * Distal Left Anterior Descending to Distal Left Anterior Descendin% stenosis treated with a AB MINI TREK 2.00X30 RX BALLOON. 0% residual stenosis, ROSARIO: 3 flow. Conclusions 1. Severe proximal to mid LAD stenosis status post successful revascularization with CLAUDIO x1. 2. Severe distal LAD stenosis s/p successful revascularization with balloon angioplasty.. 3. Proximal Left Anterior Descending to Mid Left Anterior Descending was treated with a Balloon, Drug Eluting Stent, and Balloon. 4. Distal Left Anterior Descending to Distal Left Anterior Descending was treated with a Balloon. Recommendations * Continue aspirin and Plavix for at least 1 year. * High intensity statin therapy. * Aggressive risk factor control. * Outpatient cardiology follow-up in 4 weeks. Interventional RX Recommendation: PCI w/o planned CABG Diagnostic RX Recommendation: PCI w/o planned CABG Anticoagulation: Heparin Pressures Phase:Rest AO : 154 / 103 ( 129 ) @ 12:47:00 PM 105 / 66 ( 85 ) @ 12:54:00 PM 121 / 66 ( 92 ) @ 1:00:00 PM 114 / 72 ( 93 ) @ 1:08:00 PM 112 / 70 ( 91 ) @ 1:13:00 PM 128 / 74 ( 100 ) @ 1:17:00 PM 127 / 74 ( 99 ) @ 1:25:00 PM Clinical Evaluation EBL: 5mL-10mL Procedural Details Procedure Consent Obtained. Admit Source: In Patient. Hemodynamic formulas in Rest were re-calculated based on hemoglobin value from 10/05/2021 4:11:00 AM. Pre-Procedure Time Out. Identified patient by full name and date of as verbalized by the patient/guarantor. Does the consent match the physician's order: Yes. Accurate & Complete Informed Consent: Yes. Inpatient/Outpatient History & Physical on Chart: Yes. If H&P is completed, is and addenduem needed: No; If yes, is the addendum complete: N/A. Visualize and Verify Site with Patient/Guarantor: N/A. Relevant Radiology Images available: Yes. The risks, benefits, and alternatives of sedation and/or procedure were discussed by physician. The patient agrees to continue. Procedure started. [facility] Clinical Fraility Score: 3: Managing Well. Banking Specialist Indications: Stable Known CAD. Chest Pain Symptom Assessment: Atypical Angina. Correct patient, site and procedure confirmed by cath team. Current diagnosis: Chest Pain. PERRLA. Strong, equal hand disintegrator operator bilaterally. Lungs clear x 5 lobes. IV Site on Arrival: 18 gauge in the left anticubital. IV Fluids: 0.9% NaCl at KVO. 500 mL infused prior to labor relations teacher. Pre Procedural Pulses: right dorsalis pedis was 3+. Pre Procedural Pulses: bilateral posterior tibial was 3+. Pre Procedural Pulses: bilateral radial was 3+. Oxygen started at 2liters/min via nasal canula. right groin was prepped with chloroprep then draped in the usual sterile fashion. Physician notified. Baseline sample Acquired. HR: 95 BPM. Physician arrived. Physician scrubbed in. Immediate Pre-Procedure Time Out. Correct Patient: Yes; Correct Procedure: Yes; Correct Site: Yes; Correct Patient Position: Yes; Correct Supplies: Yes; Dried Flammable Prep: No; Blood Products Available: No;. Lidocaine 1% infiltrated to the right groin. Arterial access obtained with micropuncture set. PCI Indication: CAD (without ischemic symptoms). 6 kazakh XB 3.5 guide catheter was inserted over the wire. Guide catheter out. 6 kazakh XB 4 guide catheter was inserted over the wire. Wire out. Guide catheter out over wire due to kinked catheter. Sheath upsized to a 6 Fr. 6 kazakh XB 3.5 guide catheter was inserted over the wire. standard wire out. Viper coronary wire advanced through guide catheter. Viperwire advanced across lesion in proximal to mid LAD. Viperwire seated in distal LAD. ACT drawn. Results 577 seconds. Therapeutic limits - pre-heparin administration 90-150 seconds and monitoring heparin during a vascular procedure >250 seconds. Orbital atherectomy device inserted over the wire. Wire came back to guide. Device removed. Repositioning the viper wire down the LAD. Viperwire removed. Runthrough guidewire was advanced through the guide catheter to lesion in the prox to Mid LAD. ACT drawn. Results 358 seconds. Therapeutic limits - pre-heparin administration 90-150 seconds and monitoring heparin during a vascular procedure >250 seconds. Teleport catheter inserted over the Runthrough wire. Runthrough wire removed. Viper wire inserted and advanced to lesion in the Prox to Mid LAD. Teleport catheter removed over the Viperwire. Orbital atherectomy device inserted over the wire and positioned in the lesion to Prox LAD. Orbital atherectomy performed to Prox to Mid LAD lesion. Orbital atherectomy device removed over the Viperwire. Teleport catheter inserted over the wire. Viperwire removed. Runthrough guidewire was advanced through the guide catheter to lesion in the prox LAD. Teleport support catheter removed. Balloon inserted to lesion in the prox LAD. Inflation number : 1 A AB TREK 2.75X20 RX BALLOON was prepped and advanced across the Prox LAD , then inflated to 14 JESSICA for 0:25 seconds. Inflation number: 2 The AB TREK 2.75X20 RX BALLOON was reinflated across the Prox LAD, to 0 JESSICA for 0:34 seconds. Balloon out. Results checked. Stent inserted to lesion in the prox LAD. Inflation Number : 3 A RENETTA Shabazz MIKHAIL 3.0X38 CLAUDIO -Lot Number# [id number] Exp 06/13/2024 was prepped and advanced across the Prox LAD. The stent was deployed at 12 JESSICA for 0:25 seconds. Stent balloon out over wire. Results checked. Balloon inserted to lesion in the prox LAD. Inflation number : 4 A RENETTA HERNANDEZ EUPHORA RX [id number] BALLOON was prepped and advanced across the Prox LAD , then inflated to 12 JESSICA for 0:13 seconds. Balloon out. Balloon inserted to lesion in the distal LAD. Inflation number : 1 A AB MINI TREK 2.00X30 RX BALLOON was prepped and advanced across the Dist LAD , then inflated to 10 JESSICA for 0:25 seconds. Inflation number: 2 The AB MINI TREK 2.00X30 RX BALLOON was reinflated across the Dist LAD, to 10 JESSICA for 0:20 seconds. Balloon out. Results checked. Wire out. Results checked. Guide catheter out. ACT drawn. Results 241 seconds. Therapeutic limits - pre-heparin administration 90-150 seconds and monitoring heparin during a vascular procedure >250 seconds. A Suture was successful obtaining hemostatsis at the Right Femoral artery insertion site. Sheath(s) sutured into position with 2-0 silk and sterile 4x4's and Op-site applied over the site. No oozing or signs and symptoms of hematoma noted. Post Procedure: Pulses reassessed and unchanged. PERRLA. Strong, equal hand disintegrator operator bilaterally. No VTE prophylaxis required. Medication's Wasted: Other = Fentanyl 100 mcg. Medication's Wasted: Verapamil = 3 mg. Post-op diagnosis: Severe Prox to Mid Stenosis, S/P PCI. Medication's Wasted: Nitro = 49.7 mg. Total IV fluids: 117 mL. Complications: none. Estimated blood loss: 5mL-10mL. Responsiveness - Normal response to verbal stimuli; alert and oriented, PERRLA. Airway - Unaffected, no intervention required; spontaneous ventilation. Circulation: W/N/L, pulses unchanged. Nausea/Vomiting: No. Procedure completed. Patient transferred by bed to ICU. Vital chart was stopped. Access Site Site: Right Femoral artery Sheath Size: 6 Fr Hemostasis Method: Suture Hemostasis Success: Successful Procedure Medications Start: 11:09 AM Stop: 11:09 AM Medication: Versed Amount: 1 mg Route: I.V. Start: 11:14 AM Stop: 11:14 AM Medication: Versed Amount: 1 mg Route: I.V. Start: 11:19 AM Stop: 11: AM Medication: Diphendryamine Amount: 50 mg Route: I.V. Start: 11:29 AM Stop: 11:29 AM Medication: Heparin Amount: 16142 units Route: I.V. Start: 11:41 AM Stop: 11:41 AM Medication: Heparin Amount: 1000 units Route: I.V. Start: 12:12 PM Stop: 12:12 PM Medication: Heparin Amount: 2000 units Route: I.V. Start: 12:20 PM Stop: 12:20 PM Medication: Versed Amount: 1 mg Route: I.V. Start: 12:24 PM Stop: 12:24 PM Medication: Heparin Amount: 1000 units Route: I.V. I, the attending physician, have reviewed and verified all procedure medications. Yes, all medications given per verbal order History/Risk Factors Hypertension: Yes Dyslipidemia: Yes Peripheral Arterial Disease (PAD): No Myocardial Infarction (NE): No Obesity: No Renal Disease: No Tobacco Use: Current/Recent(w/in 1 year) Prior Interventions PCI: No CABG: No Valve Surgery: No Report Signatures Finalized by Sanju Taylor MD on 10/14/2021 10:08 PM
[2021-10-05] MEDS: clopidogrel 75 mg Tablet PO (09:17)
[2021-10-05] MEDS: ranolazine (12HR) 500 mg Tablet PO ×2 (09:17→17:18)
[2021-10-05] MEDS: isosorbide mononitrate ER 30 mg Tablet PO (09:17)
[2021-10-05] MEDS: aspirin 81 mg EC Tablet PO (09:17)
--- NOTE | 2021-10-05 10:29 | PC.SOCIAL ---
IMM update IMM updated with patient. Verbalized an understanding. Copy Pg 2 provided. Initialled, dated, timed, and placed in chart
--- NOTE | 2021-10-05 11:09 | W.PM.OPSUD ---
Surgery/Procedure H&P Update DATE OF PROCEDURE: October 05, 2021 DATE H&P PERFORMED: 10/04/21 H&P UPDATE INFORMATION: I have reviewed H&P completed within last 30 days, I have examined patient prior to procedure and No changes to prior documentation PREOP DIAGNOSIS: Worsening angina PRIMARY INDICATION FOR PROCEDURE: Worsening angina PLANNED PROCEDURE: Staged PCI of LAD with arthrectomy PATIENT REASSESSED PRIOR TO SEDATION, WITH NO CHANGE NOTED: Yes PHYSICAL EXAM: alert, oriented x 3, clear to auscultation bilaterally and regular rate & rhythm AIRWAY EVAL/ANESTHESIA PLAN: ASA III, Local Anesthesia, Risks, benefits & alternatives of sedation and/or procedure discussed and Patient agrees to continue as planned ADDITIONAL INFORMATION: Moderate sedation
[2021-10-05] MEDS: nitroglycerin drip 50 MG/250 ML PREMIX 30 MG IV (14:28)
[2021-10-05 16:08] LABS: Partial Thromboplastin Time 106.6 SECONDS (23.9-36.7)
--- NOTE | 2021-10-05 18:05 | PM.PN ---
Subjective Subjective: Patient is status post arthrectomy today. Seen back in the ICU, sheath is in place. Mild bleeding noted around the site. Patient states his chest pain is better though still feels some degree of pressure. Hemodynamics have been stable. Medications: Reviewed: Yes Vitals/I&O/Wt Last Vital Signs Temp 98.4 F 10/05/21 14:42 Pulse 70 10/05/21 16:30 Resp 14 10/05/21 16:30 BP 150/71 10/05/21 16:30 Pulse Ox 96 10/05/21 16:30 O2 Del Method 10/05/21 16:30 O2 Flow Rate 3 10/05/21 16:30 10/05/21 10/05/21 10/05/21 06:59 14:59 22:59 Intake Total 2349.30 / 4014.00 1254.3 / 1254.3 39.25 / 1293.55 Output Total 1200 / 1425 400 / 400 1350 / 1750 Balance 1149.30 / 2589.00 854.3 / 854.3 -1310.75 / -456.45 Physical Exam Narrative: General: No acute distress, AO x3 HEENT: PERRLA, pupils bilaterally equal and reactive, pallors not present Chest: Normal vesicular breath sounds, no added sounds, equal good air entry bilaterally CVS: S1-S2 regular, no murmurs, no tachycardia, no gallops, no rubs Abdomen: Soft, nontender, no organomegaly, bowel sounds present Neuro: No focal deficits, no facial deformity, AO x3, power 5/5 in all limbs Data : 10/05/21 04:11 10/05/21 04:11 A&P Assessment and plan (1) Chest pain: 71M with multiple cardiac risk factors presented with chest pain, had abnormal stress test. s/p angiogram and PCI to OM and atherectomy to proximal LAD. Currently on nitro gtt for ongoing chest pain, titrating down this afternoon.. continue asa 81mg , plavix 75mg po daily continue statin , ranexa beta blockers have been on hold due to sinus bradycardia, however now heart rate ranging between 70 to 80 bpm.. Will resume low-dose metoprolol 12.5 mg p.o. daily. D dimer negative upon admission, less likely PE Status: Acute Attestations Medical Necessity Statement*: Needs ongoing cardiac monitoring postatherectomy care Coding Level of Care Code Acute Flake [employer]ats for Chg Fwd Diagnoses Chest pain R07.9
--- NOTE | 2021-10-05 18:07 | XRR_ITS ---
PROCEDURE INFORMATION: Exam: XR Chest Exam date and time: 10/05/2021 6:12 PM Age: 71 years old Clinical indication: Angina; Additional info: Chest pain TECHNIQUE: Imaging protocol: Radiologic exam of the chest. Views: 1 view. COMPARISON: CR XR chest 1V portable [id number] 10/02/2021 11:06 AM FINDINGS: Lungs: Unremarkable. No consolidation. Pleural spaces: Unremarkable. No pleural effusion. No pneumothorax. Heart/Mediastinum: Unremarkable. No cardiomegaly. Bones/joints: Unremarkable. XR/XR chest 1V portable [id number] IMPRESSION: No acute findings.
--- NOTE | 2021-10-05 18:29 | PC.NURSE ---
this nurse had Dr. Taylor come to bedside to observe bleeding from right groin site, no n.o.
--- NOTE | 2021-10-05 18:57 | P.PN_ITS ---
Subjective Subjective: Patient is doing well. Underwent successful revascularization of LAD with arthrectomy and CLAUDIO x1. Denies chest pain at this time. Vitals/I&O/Wt Last Vital Signs Temp 98.4 F 10/05/21 14:42 Pulse 70 10/05/21 16:30 Resp 14 10/05/21 16:30 BP 150/71 10/05/21 16:30 Pulse Ox 96 10/05/21 16:30 O2 Del Method 10/05/21 16:30 O2 Flow Rate 3 10/05/21 16:30 10/05/21 10/05/21 10/05/21 06:59 14:59 22:59 Intake Total 2349.30 / 4014.00 1254.3 / 1254.3 39.25 / 1293.55 Output Total 1200 / 1425 400 / 400 1350 / 1750 Balance 1149.30 / 2589.00 854.3 / 854.3 -1310.75 / -456.45 Physical Exam Narrative: GENERAL: Patient is alert, awake and oriented x3. [] NECK: No jugular vein distension. [] HEENT: No cyanosis. No icterus. No pallor. [] HEART: Regular S1 and S2. No murmur, rub or gallop. [] LUNGS: Clear to auscultate bilaterally. [] ABDOMEN: Soft, nontender and nondistended. Positive bowel sounds. No guarding, rebound or tenderness. [] CENTRAL NERVOUS SYSTEM: Grossly nonfocal. [] EXTREMITIES: Lower extremities with no edema bilaterally. Pulses palpable in the lower extremities, both dorsalis pedis and posterior tibial. [] Data : 10/05/21 04:11 10/05/21 04:11 A&P Assessment and plan (1) Chest pain: Status: Acute (2) Abnormal stress test: Status: Acute (3) Hypertension: Status: Acute (4) Hyperlipidemia: Status: Acute (5) Diabetes mellitus: Status: Acute (6) Hypothyroidism: Status: Acute Plan Patient underwent successful revascularization of large OM branch today. However patient continues having on and off chest discomfort. It has some atypical features. Patient has residual severe disease of LAD which is diffuse. No good bypass targets. Patient underwent successful revascularization of LAD with arthrectomy and CLAUDIO x1. Continue aspirin and Plavix. High intensity statin therapy. Blood pressure control. Echo shows normal LV systolic function. Thank you for involving us with care of this patient. We will continue to follow. Please call with questions Attestations Medical Necessity Statement*: Care expected to cross 2 midnights Coding Level of Care Code Acute Laboratory Equipment Cleaner for Waleska Wised Diagnoses Chest pain R07.9 Abnormal stress test R94.39 Hypertension I10 Hyperlipidemia E78.5 Diabetes mellitus E11.9 Hypothyroidism E03.9
--- NOTE | 2021-10-05 19:40 | PC.NURSE ---
Pt complaining of sinus drainage and new cough/sneezing. Pt remains flat on bedrest s/p cath. Bedside report received from CLEMENTE Amos. NTG infusing at 100 mcg/min and NS infusing at 60 mls/hr.
--- NOTE | 2021-10-05 19:46 | PC.NURSE ---
Normal saline increased to 100 mls/hr per physician's order/EMR.
--- NOTE | 2021-10-05 19:56 | PC.NURSE ---
New 4x4s have minimal drainage on them.
[2021-10-05] MEDS: isosorbide mononitrate ER 30 mg Tablet 15 MG PO (20:04)
[2021-10-05] MEDS: pantoprazole DR 40 mg Tablet PO (20:04)
[2021-10-05 20:21] LABS: Partial Thromboplastin Time 28.1 SECONDS (23.9-36.7)
[2021-10-05 20:41] LABS: Alanine Aminotransferase 17 U/L (0-41); Albumin Level 3.9 g/dL (3.5-5.2); Alkaline Phosphatase 60 IU/L (40-130); Anion Gap 14.7 (5-19); Aspartate Amino Transferase 12 U/L (0-40); Blood Urea Nitrogen 11 mg/dL (8-23); Calcium 8.7 mg/dL (8.5-10.5); Carbon Dioxide 24 mmol/L (22-29); Chloride 104 mmol/L (98-107); Globulin 2.4 g/dL (1.3-4.6); Glomerular Filtration Rate 95.6 mL/min (90-130); Glucose 155 mg/dL (65-115); Osmolality Calculated 291 mOsm/kg (285-295); Potassium 3.7 mmol/L (3.5-5.1); Sodium 139 mmol/L (136-145); Total Bilirubin 1.1 mg/dL (0.15-1.2); Total Protein 6.3 g/dL (6.6-8.7)
--- NOTE | 2021-10-05 20:43 | PC.NURSE ---
Bubbler applied to pt's oxygen to prevent drying of mucous membranes.
--- NOTE | 2021-10-05 21:10 | PC.NURSE ---
Dr. Koehler in unit and approved holding this evening's dose of Lovenox.
--- NOTE | 2021-10-05 22:10 | PC.NURSE ---
Pt describes pain as soreness, and would like to attempt to decreased NTG drip so that he may go home tomorrow. Pt will report increased chest discomfort to nursing immediately.
--- NOTE | 2021-10-05 22:38 | PC.NURSE ---
Sheath Removal Patient's PTT 28.1 at 2000. Site noted to have oozing around dressing with no hematoma noted; Dr. Koehler aware of oozing. Sheath pulled at 2135: manual pressure applied for 15 minutes, no oozing or hematoma noted, all vitals remained stable, no complications. Clear dressing with gauze applied to site.
[2021-10-05] MEDS: nitroglycerin drip 50 MG/250 ML PREMIX 25.5 MG IV (23:22)
[2021-10-06] VITALS (36 sets, daily range): BP systolic 119–174; BP diastolic 62–101; PULSE 59–108; RESP 10–33; TEMP 37.1–37.2; O2SAT 90–96
[2021-10-06] MEDS: sodium chloride 0.9% 1,000 ML 100 ML IV (02:08)
--- NOTE | 2021-10-06 02:19 | PC.NURSE ---
Pt snores loudly when sleeping and has short periods of apnea.
--- NOTE | 2021-10-06 03:36 | PC.NURSE ---
Pt's 6 hour flat time has been completed. No hematoma present. Dressing is dry and intact.
[2021-10-06 04:35] LABS: Basophils % 0.4 %; Eosinophils # 0.3 10^3/uL (0.0-0.8); Eosinophils % 2.8 %; Hematocrit 37.6 % (42.0-52.0); Hemoglobin 12.6 g/dL (11.7-16.6); Lymphocytes # 1.1 10^3/uL (0.8-4.8); Lymphocytes % 12.3 %; Mean Corpuscular HGB Conc 33.5 g/dL (30.0-36.0); Mean Corpuscular Hemoglobin 29.9 pg (28.0-34.0); Mean Corpuscular Volume 89.1 fl (80-94); Monocytes # 0.9 10^3/uL (0.2-0.9); Monocytes % 10.4 %; Neutrophils # 6.56 10^3/uL (1.8-7.7); Neutrophils % 73.7 %; Nucleated Red Blood Cells % 0 %; Platelet Count 154 10^3/cmm (130-400); Red Blood Count 4.22 10^6/uL (4.1-5.3); Red Cell Distribution Width 13.2 % (12.1-15.1); White Blood Count 8.9 10^3/uL (4.0-10.0)
[2021-10-06] MEDS: amlodipine 10 mg Tablet PO (05:06)
[2021-10-06] MEDS: levothyroxine 125 mcg Tablet PO (05:06)
[2021-10-06] MEDS: atorvastatin 40 mg Tablet 80 MG PO (05:06)
[2021-10-06 05:09] LABS: NT Pro B Type Natriuretic Pept 143 pg/mL (0-125)
[2021-10-06] MEDS: aspirin 81 mg EC Tablet PO (08:18)
[2021-10-06] MEDS: isosorbide mononitrate ER 30 mg Tablet PO (08:18)
[2021-10-06] MEDS: clopidogrel 75 mg Tablet PO (08:18)
[2021-10-06] MEDS: ranolazine (12HR) 500 mg Tablet PO (08:19)
[2021-10-06] MEDS: metoprolol tartrate 25 mg Tablet 12.5 MG PO (08:19)
--- NOTE | 2021-10-06 08:39 | PC.NURSE ---
Dr. Taylor at bedside, informed patient he is cleared by cardiology, may d/c today depending on hospitalist
--- NOTE | 2021-10-06 08:55 | P.PN_ITS ---
Subjective Subjective: Patient is doing well. No complaints of chest pain today. Vitals/I&O/Wt Last Vital Signs Temp 98.8 F 10/06/21 03:59 Pulse 75 10/06/21 06:30 Resp 22 H 10/06/21 06:30 BP 160/87 10/06/21 06:30 Pulse Ox 94 10/06/21 06:30 O2 Del Method 10/06/21 06:30 O2 Flow Rate 2 10/06/21 04:45 10/05/21 10/06/21 10/06/21 22:59 06:59 14:59 Intake Total 1136.367 / 2390.667 730.483 / 3121.150 Output Total 1650 / 2050 900 / 2950 240 / 240 Balance -513.633 / 340.667 -169.517 / 171.150 -240 / -240 Physical Exam Narrative: GENERAL: Patient is alert, awake and oriented x3. [] NECK: No jugular vein distension. [] HEENT: No cyanosis. No icterus. No pallor. [] HEART: Regular S1 and S2. No murmur, rub or gallop. [] LUNGS: Clear to auscultate bilaterally. [] ABDOMEN: Soft, nontender and nondistended. Positive bowel sounds. No guarding, rebound or tenderness. [] CENTRAL NERVOUS SYSTEM: Grossly nonfocal. [] EXTREMITIES: Lower extremities with no edema bilaterally. Pulses palpable in the lower extremities, both dorsalis pedis and posterior tibial. [] Data : 10/06/21 03:51 10/06/21 03:51 A&P Assessment and plan (1) Chest pain: Status: Resolved (2) Abnormal stress test: Status: Inactive (3) Hypertension: Status: Acute (4) Hyperlipidemia: Status: Acute (5) Diabetes mellitus: Status: Acute (6) Hypothyroidism: Status: Acute Plan Patient underwent successful revascularization of LAD with arthrectomy ye sterday. OM1 was revascularized. Patient is symptom free now. Continue dual antiplatelet agents for now. BP is elevated. BP meds have been uptitrated. Patient asked to keep a log of blood pressure readings and bring it to the outpatient cardiology appointment. Thank you for involving us with care of this patient. Patient is stable to be discharged from cardiology standpoint. Please call with questions Attestations Medical Necessity Statement*: Care expected to cross 2 midnights. Coding Level of Care Code Acute Zinc Chloride Operator for Chg Fwd Diagnoses Chest pain R07.9 Abnormal stress test R94.39 Hypertension I10 Hyperlipidemia E78.5 Diabetes mellitus E11.9 Hypothyroidism E03.9
[2021-10-06] MEDS: metoprolol tartrate 25 mg Tablet 50 MG PO (09:13)
--- NOTE | 2021-10-06 10:00 | P.DS_ITS ---
Discharge Providers Date of Admission: 10/02/21 14:06 Date of Discharge: October 06, 2021 Attending Provider at Admission: Quan Fung MD Attending Provider at Discharge: Ginette Russ MD Primary Care Provider: Himanshu Franco MD Diagnoses at Discharge Discharge Diagnosis (1) Chest pain: Status: Acute (2) Abnormal stress test: Status: Acute (3) Hypertension: Status: Acute (4) Hyperlipidemia: Status: Acute (5) Diabetes mellitus: Status: Acute (6) Hypothyroidism: Status: Acute (7) Coronary artery disease: Status: Acute Reason for Visit Reason for Visit: chest pain Hospital Course Hospital Course 71 year old male with a past medical history of diabetes mellitus, hypertension, presented to the hospital with chief complaints of chest pain. He underwent a stress test on October 03 which showed small size reversible perfusion abnormality of the basal inferolateral wall. This was followed up with an angiogram and PCI to OM and atherectomy to proximal LAD.patient has residual severe disease of LAD which is diffuse. He tolerated the procedure well. Following the atherectomy his chest pain is now improved. He tolerated the procedure well. He is being discharged today in stable condition with recommendations to continue aspirin Plavix, high intensity statin. Patient was previously on bisoprolol which was placed on hold as he had sinus bradycardia with heart rate in the 50s. At the time of discharge this is improved to 70-90 bpm. He has been started now on metoprolol. Echocardiogram showed normal LV function. Physical Exam 2 Narrative: General: No acute distress, AO x3 HEENT: PERRLA, pupils bilaterally equal and reactive, pallors not present Chest: Normal vesicular breath sounds, no added sounds, equal good air entry bilaterally CVS: S1-S2 regular, no murmurs, no tachycardia, no gallops, no rubs Abdomen: Soft, nontender, no organomegaly, bowel sounds present Neuro: No focal deficits, no facial deformity, AO x3, power 5/5 in all limbs Extremities: no edema clubbing or cyanosis. Discharge Data Studies Completed and Pending Completed Studies During Hospitalization Category Date Time Status Cardiac Stress Test MIBI [Sestamibi Stress Test Request Exams 10/03/21 06:36 Completed ] Stat XR chest 1V portable [id number] Routine Exams 10/05/21 18:07 Completed XR chest 1V portable [id number] Stat Exams 10/02/21 10:55 Completed NM rony perf SPECT r/s* [id number] Routine Nuc Med 10/03/21 07:00 Completed CV. echo wo/w contrast [id number] Routine Ultrasound 10/04/21 14:47 Completed Pending at discharge Category Date Time Status PRODUCTION GRADER request for service Routine Exams 10/04/21 06:00 Taken PRODUCTION GRADER request for service Routine Exams 10/05/21 09:10 Taken Cardiac Stress Test MIBI [Sestamibi Stress Test Request Exams 10/02/21 15:46 Stop Req ] Stat Radiology Impressions Chest X-Ray 10/05/21 18:07 IMPRESSION: No acute findings. CONCLUSIONS ?Technically limited quality echocardiogram because of poor ?ultrasonic windows.? ?LV systolic function is normal with EF 55 to 60%. ?Left atrium is dilated. ?Mild tricuspid regurgitation. ?No comparison studies are available Laboratory Results WBC 8.9 10^3/uL (4.0-10.0) 10/06/21 03:51 RBC 4.22 10^6/uL (4.1-5.3) 10/06/21 03:51 Hgb 12.6 g/dL (11.7-16.6) 10/06/21 03:51 Hct 37.6 % (42.0-52.0) L 10/06/21 03:51 MCV 89.1 fl (80-94) 10/06/21 03:51 MCH 29.9 pg (28.0-34.0) 10/06/21 03:51 MCHC 33.5 g/dL (30.0-36.0) 10/06/21 03:51 RDW 13.2 % (12.1-15.1) 10/06/21 03:51 Plt Count 154 10^3/cmm (130-400) 10/06/21 03:51 MPV 11.0 fL (7.4-10.4) H 10/06/21 03:51 Neut % (Auto) 73.7 % 10/06/21 03:51 Lymph % (Auto) 12.3 % 10/06/21 03:51 Garden % (Auto) 10.4 % 10/06/21 03:51 Eos % (Auto) 2.8 % 10/06/21 03:51 Baso % (Auto) 0.4 % 10/06/21 03:51 Neut # (Auto) 6.56 10^3/uL (1.8-7.7) 10/06/21 03:51 Lymph # (Auto) 1.1 10^3/uL (0.8-4.8) 10/06/21 03:51 Garden # (Auto) 0.9 10^3/uL (0.2-0.9) 10/06/21 03:51 Eos # (Auto) 0.3 10^3/uL (0.0-0.8) 10/06/21 03:51 Baso # (Auto) 0.0 10^3/uL (0.0-0.1) 10/06/21 03:51 Nucleated RBC % (auto) 0 % 10/06/21 03:51 Nucleated RBCs # 0.0 /100WBC 10/06/21 03:51 PT 12.50 SECONDS (12.1-14.9) 10/02/21 11:04 INR 0.90 (0.8-1.2) 10/02/21 11:04 APTT 28.1 SECONDS (23.9-36.7) D 10/05/21 20:01 D-Dimer 0.56 ug/mIFEU (0-0.59) 10/02/21 11:04 Sodium 139 mmol/L (136-145) 10/05/21 20:01 Potassium 3.7 mmol/L (3.5-5.1) 10/05/21 20:01 Chloride 104 mmol/L (98-107) 10/05/21 20:01 Carbon Dioxide 24 mmol/L (22-29) 10/05/21 20:01 Anion Gap 14.7 (5-19) 10/05/21 20:01 BUN 11 mg/dL (8-23) 10/05/21 20:01 Creatinine 0.8 mg/dL (0.7-1.2) 10/05/21 20:01 GFR Calculation 95.6 mL/min (90-130) 10/05/21 20:01 Glucose 155 mg/dL (65-115) H 10/05/21 20:01 Estimat Average Glucose 157 10/04/21 02:42 Hemoglobin A1c 7.1 % (4.0-6.0) H 10/04/21 02:42 Calculated Osmolality 291 mOsm/kg (285-295) 10/05/21 20:01 Calcium 8.7 mg/dL (8.5-10.5) 10/05/21 20:01 Total Bilirubin 1.1 mg/dL (0.15-1.2) 10/05/21 20:01 AST 12 U/L (0-40) 10/05/21 20:01 ALT 17 U/L (0-41) 10/05/21 20:01 Alkaline Phosphatase 60 IU/L (40-130) 10/05/21 20:01 Troponin T Baseline 16 ng/L (0-15) H 10/02/21 11:04 Troponin T 120 Minute 14.09 ng/L (0-15) 10/02/21 12:59 Delta Troponin T -1.91 ABS# (0-10) L 10/02/21 12:59 Troponin T Hi Sens 6Hr 15.42 ng/L (0-15) H 10/02/21 16:58 Troponin T Hi Sens 6Hr Delta -0.58 ng/L (0-12) L 10/02/21 16:58 NT-Pro-B Natriuret Pep 143 pg/mL (0-125) H 10/06/21 03:51 Total Protein 6.3 g/dL (6.6-8.7) L 10/05/21 20:01 Albumin 3.9 g/dL (3.5-5.2) 10/05/21 20:01 Globulin 2.4 g/dL (1.3-4.6) 10/05/21 20:01 Triglycerides 84 mg/dL (0-150) 10/04/21 09:16 Cholesterol 136 mg/dL (0-200) 10/04/21 09:16 LDL Cholesterol Direct 93 mg/dL (0-100) 10/04/21 09:16 LDL Cholesterol, Calc 85 mg/dL (50-129) 10/04/21 09:16 HDL Cholesterol 34 mg/dL (60-100) L 10/04/21 09:16 LDL/HDL Ratio 2.50 RATIO (0.00-3.22) 10/04/21 09:16 Cholesterol/HDL Ratio 4.00 mg/dL (1.0-5.00) 10/04/21 09:16 TSH 13.70 uIU/mL (0.27-4.20) H 10/02/21 11:04 Free T4 0.73 ng/dL (0.82-1.77) L 10/03/21 02:58 Free T3 2.8 PG/ML (2.0-4.4) 10/03/21 02:58 Vitals Last Vital Signs Temp 98.8 F 10/06/21 03:59 Pulse 75 10/06/21 06:30 Resp 22 H 10/06/21 06:30 BP 160/87 10/06/21 06:30 Pulse Ox 94 10/06/21 06:30 O2 Del Method 10/06/21 06:30 O2 Flow Rate 2 10/06/21 04:45 Discharge Plan Discharge Patient Disposition: Home Condition: Stable Prescriptions: New isosorbide mononitrate 30 mg Tablet Extended Release 24 Hr 15 mg PO 2100 30 Days Qty: 15 0RF isosorbide mononitrate 30 mg Tablet Extended Release 24 Hr 30 mg PO DAILY 30 Days Qty: 30 0RF clopidogrel 75 mg Tablet 75 mg PO DAILY 30 Days Qty: 30 0RF aspirin 81 mg Tablet,Delayed Release (Dr/Ec) 81 mg PO DAILY 30 Days Qty: 30 0RF nitroglycerin 0.4 mg Tablet, Sublingual 0.4 mg sublingual Q5M PRN (Reason: Chest Pain) 30 Days Qty: 30 0RF ranolazine 500 mg Tablet Extended Release 12 Hr 500 mg PO BID 30 Days Qty: 60 0RF metoprolol succinate [Toprol XL] 50 mg tablet extended release 24 hr 50 mg PO DAILY 30 Days Qty: 30 0RF Continued amlodipine 10 mg tablet 10 mg PO QAM levothyroxine 125 mcg tablet 125 mcg PO QAM niacin 500 mg Tablet 1,750 mg PO DAILY PRN (Reason: unknown) omeprazole 20 mg capsule,delayed release(DR/EC) 20 mg PO BEDTIME metformin 500 mg tablet extended release 24 hr 500 mg PO QAM Changed atorvastatin 40 mg tablet 80 mg PO QAM 30 Days Qty: 30 0RF Discontinued bisoprolol-hydrochlorothiazide 10-6.25 mg tablet 1 tab PO QAM Aspir-81 81 mg Tablet,Delayed Release (Dr/Ec) 81 mg PO QAM Discharge Orders: Discharge Order (Routine); Ordered 10/06/21 Ordered By: Ginette Russ Referrals: Himanshu Franco MD [Primary Care Provider] - 7-10 days (abnormal TSH and t4 ) Dai Easton FNP [Nurse Practitioner] - 1 week Sanju Taylor M.D [Physician] - 1 month Discharge Diet: As Directed Discharge Activity: Increase activity as tolerated Patient Instructions: Opioid Safety Activity Restrictions/Additional Instructions: Your thyroid function test has resulted abnormal. TSH 13.7. T4 0.73. Please follow-up with your primary care provider to adjust levothyroxine dosing. Discharge Attestations Time Spent in Discharge Care*: greater than 30 min Quality Metrics Clinical Quality Measures [ No reported AMI, CVA or VTE this stay] Coding Level of Care Code Acute Chg FW DC note Diagnoses Chest pain R07.9 Abnormal stress test R94.39 Hypertension I10 Hyperlipidemia E78.5 Diabetes mellitus E11.9 Hypothyroidism E03.9 Coronary artery disease I25.10
[2021-10-06 10:26] LABS: Alanine Aminotransferase 17 U/L (0-41); Alkaline Phosphatase 59 IU/L (40-130); Anion Gap 15.8 (5-19); Aspartate Amino Transferase 15 U/L (0-40); Blood Urea Nitrogen 10 mg/dL (8-23); Calcium 8.8 mg/dL (8.5-10.5); Carbon Dioxide 23 mmol/L (22-29); Chloride 104 mmol/L (98-107); Globulin 2.5 g/dL (1.3-4.6); Glomerular Filtration Rate 83.4 mL/min (90-130); Glucose 130 mg/dL (65-115); Osmolality Calculated 289 mOsm/kg (285-295); Potassium 3.8 mmol/L (3.5-5.1); Sodium 139 mmol/L (136-145); Total Protein 6.5 g/dL (6.6-8.7)
--- NOTE | 2021-10-06 11:11 | PC.NURSE ---
Dr. Russ gave v.o. to stop Nitro drip due to patient getting po metoprolol this am, goal is to D/C later today
--- NOTE | 2021-10-06 13:35 | PC.NURSE ---
all d/c instructions and appointments educated to patient and , patient maryanne at this time transported by
== END 2021-10-06 13:36 | disposition home or self-care (01) | DRG 246 ==
LOC: ER 12:11 → MEDSURG 16:46 → CSU 10-04 07:42 → ICU 10-04 16:08
PROVIDERS: Internal Medicine; Internal Medicine Cardiovascular Disease; Admitting Provider Student in an Organized Health Care Education/Training Program; Emergency Provider Family Medicine; PCP General Practice; Visit Provider Student in an Organized Health Care Education/Training Program
PROC: 027034Z Dilation of Coronary Artery, One Artery with Drug-eluting Intraluminal Device, Percutaneous Approach (ICD-10-PCS; principal; 2021-10-04 06:00)
PROC: 027034Z Dilation of Coronary Artery, One Artery with Drug-eluting Intraluminal Device, Percutaneous Approach (ICD-10-PCS; 2021-10-04 06:00)
DX: I25.119 Atherosclerotic heart disease of native coronary artery with unspecified angina pectoris (principal); E11.9 Type 2 diabetes mellitus without complications; I10 Essential (primary) hypertension; E78.5 Hyperlipidemia, unspecified; E03.9 Hypothyroidism, unspecified; Z79.84 Long term (current) use of oral hypoglycemic drugs
CPT/HCPCS: 36415; 71045; 78452; 80048; 80053; 80061; 83036; 83721; 83880; 84439; 84443; 84481; 84484; 85025; 85347; 85378; 85610; 85730; 92924; 93005; 93017; 93306; 93454; 96360; 96361; 96372; 96374; 99152; 99153; 99285; A9500; C1724; C1725; C1769; C1874; C1887; C1894; C8929; C9600; J1200; J1644; J1650; J2250; J2270; J2405; J2785; J3010; J3490; J7030; Q0163; Q9956; Q9967

== ENCOUNTER → 2021-10-11 13:09 | Outpatient (BNVA) | payer MEDICARE, SELFPAY | PROVIDERS: PCP Family Medicine; Visit Provider Nurse Practitioner Family | DX: I25.10 Atherosclerotic heart disease of native coronary artery without angina pectoris (principal); I10 Essential (primary) hypertension; Z87.891 Personal history of nicotine dependence | CPT/HCPCS: 36415; 80048; 99214 ==

== ENCOUNTER → 2021-11-06 13:51 | Outpatient (BNVA) | payer MEDICARE, SELFPAY | PROVIDERS: PCP Family Medicine; Visit Provider Internal Medicine | DX: I25.10 Atherosclerotic heart disease of native coronary artery without angina pectoris (principal); E11.9 Type 2 diabetes mellitus without complications; Z79.84 Long term (current) use of oral hypoglycemic drugs; E78.5 Hyperlipidemia, unspecified; I10 Essential (primary) hypertension; Z87.891 Personal history of nicotine dependence | CPT/HCPCS: 99214 ==

== ENCOUNTER → 2022-05-08 13:25 | Outpatient (BNVA) | payer MEDICARE, SELFPAY | PROVIDERS: PCP Family Medicine; Visit Provider Nurse Practitioner Family | DX: I25.10 Atherosclerotic heart disease of native coronary artery without angina pectoris (principal); I10 Essential (primary) hypertension; Z87.891 Personal history of nicotine dependence; Z79.82 Long term (current) use of aspirin | CPT/HCPCS: 99214 ==

== ENCOUNTER → 2022-11-06 13:46 | Outpatient (BNVA) | payer MEDICARE, SELFPAY | PROVIDERS: PCP Family Medicine; Visit Provider Internal Medicine | DX: I25.10 Atherosclerotic heart disease of native coronary artery without angina pectoris (principal); E11.9 Type 2 diabetes mellitus without complications; Z79.84 Long term (current) use of oral hypoglycemic drugs; E78.5 Hyperlipidemia, unspecified; I10 Essential (primary) hypertension; Z87.891 Personal history of nicotine dependence | CPT/HCPCS: 99214 ==

== ENCOUNTER → 2023-08-06 14:12 | Outpatient (BNVA) | payer MEDICARE, SELFPAY | PROVIDERS: PCP Family Medicine; Visit Provider Internal Medicine | DX: I25.10 Atherosclerotic heart disease of native coronary artery without angina pectoris (principal); E11.9 Type 2 diabetes mellitus without complications; E78.5 Hyperlipidemia, unspecified; I10 Essential (primary) hypertension; Z79.84 Long term (current) use of oral hypoglycemic drugs | CPT/HCPCS: 99214 ==

== ENCOUNTER 2024-01-10 14:43 | Emergency (ER) | payer MEDICARE, SELFPAY ==
[2024-01-10 15:04] VITALS: BP 148/71; PULSE 56; RESP 16; TEMP 36.7; O2SAT 93; BMI 40.8
--- NOTE | 2024-01-10 15:22 | ECG_ITS ---
[facility] Test Date: 2024-01-10 Pat Name: James Villalta Department: Room: Gender: Male Talent Analyst: : 1950 Requested By: Jannet Villalobos Order Number: [id number] Shalonda MD: Drea Koehler M.D. Measurements Intervals [place] Rate: 55 P: 36 PA: 132 QRS: -21 QRSD: 100 T: 28 QT: 431 QTc: 413 Interpretive Statements SINUS BRADYCARDIA BORDERLINE LEFT AXIS DEVIATION [QRS AXIS < -20] Compared to ECG 10/04/2021 16:02:30 Sinus rhythm no longer present T-wave abnormality no longer present Electronically Signed On 01-10-2024 22:35:33 BOTTLE WASHING MACHINE OPERATOR by Drea Koehler M.D. [email or web address]
[2024-01-10 16:04] LABS: Basophils # 0.1 10^3/uL (0.0-0.1); Basophils % 0.8 %; Eosinophils # 0.5 10^3/uL (0.0-0.8); Eosinophils % 7.2 %; Lymphocytes # 1.2 10^3/uL (0.8-4.8); Lymphocytes % 16.8 %; Mean Corpuscular HGB Conc 33.7 g/dL (30-55); Mean Corpuscular Hemoglobin 29.2 pg (27-33); Mean Corpuscular Volume 86.5 fl (82-101); Mean Platelet Volume 9.9 fL (7.4-10.4); Monocytes # 0.7 10^3/uL (0.2-0.9); Monocytes % 10.1 %; Neutrophils # 4.72 10^3/uL (1.8-7.7); Neutrophils % 64.4 %; Nucleated Red Blood Cells % 0 %; Platelet Count 183 10^3/cmm (157-399); Red Blood Count 4.97 10^6/uL (3.85-5.65); Red Cell Distribution Width 13.5 % (12.1-15.1); White Blood Count 7.33 10^3/uL (3.29-11.43)
[2024-01-10 16:22] LABS: INR 0.94 (0.8-1.2)
[2024-01-10 16:25] LABS: Troponin(5th) Baseline 23 ng/L (0-15)
[2024-01-10 16:26] LABS: Alanine Aminotransferase 25 U/L (0-41); Albumin Level 4.6 g/dL (3.5-5.2); Alkaline Phosphatase 70 U/L (40-130); Anion Gap 14.9 (5-19); Aspartate Amino Transferase 16 U/L (0-40); Blood Urea Nitrogen 19 mg/dL (8-23); Calcium 9.6 mg/dL (8.5-10.5); Carbon Dioxide 24 mmol/L (22-29); Chloride 99 mmol/L (98-107); Creatinine Clr Calc Pharmacy 67.4771; Glucose 156 mg/dL (65-115); Lipase 27 U/L (13-60); Osmolality Calculated 283 mOsm/kg (285-295); Potassium 3.9 mmol/L (3.5-5.1); Sodium 134 mmol/L (136-145); Total Bilirubin 0.5 mg/dL (0.15-1.2); Total Protein 6.6 g/dL (6.6-8.7)
== END 2024-01-10 17:24 | disposition left against medical advice (07) ==
PROVIDERS: Emergency Medicine; Emergency Provider Family Medicine; PCP Family Medicine
DX: Z53.21 Procedure and treatment not carried out due to patient leaving prior to being seen by health care provider (principal)
CPT/HCPCS: 80053; 83690; 84484; 85025; 85610; 93005

== ENCOUNTER → 2024-05-01 10:37 | Outpatient (BNVA) | payer MEDICARE, SELFPAY | PROVIDERS: PCP Family Medicine; Visit Provider Internal Medicine | DX: I25.10 Atherosclerotic heart disease of native coronary artery without angina pectoris (principal); E11.9 Type 2 diabetes mellitus without complications; E78.5 Hyperlipidemia, unspecified; I10 Essential (primary) hypertension; Z87.891 Personal history of nicotine dependence; Z79.84 Long term (current) use of oral hypoglycemic drugs | CPT/HCPCS: 99214 ==

== ENCOUNTER → 2025-02-02 08:35 | Outpatient (BNVA) | payer MEDICARE, SELFPAY | PROVIDERS: PCP Family Medicine; Visit Provider Nurse Practitioner Family | DX: I25.10 Atherosclerotic heart disease of native coronary artery without angina pectoris (principal); E78.5 Hyperlipidemia, unspecified; E11.9 Type 2 diabetes mellitus without complications; I10 Essential (primary) hypertension; Z87.891 Personal history of nicotine dependence; Z79.82 Long term (current) use of aspirin; Z79.84 Long term (current) use of oral hypoglycemic drugs; R07.9 Chest pain, unspecified; R00.1 Bradycardia, unspecified | CPT/HCPCS: 93005; 99214 ==

== ENCOUNTER 2025-02-04 07:27 | Outpatient (CLI) | payer MEDICARE, OTHER, SELFPAY ==
[2025-02-04 07:31] VITALS: BMI 37.3
--- NOTE | 2025-02-04 07:31 | ECG_ITS ---
[facility] Test Date: 2025-02-04 Pat Name: James Villalta Department: Room: Gender: Male Manager Icu: : 1950 Requested By: Dai Easton Order Number: [id number] Liz MD: Joe Hansen M.D. Interpretive Statements Procedure: A total of 0.4 mg of Lexiscan was infused over 20 seconds. The stress phase was continued for a total of 5 minutes. Sestamibi was injected 20 seconds after the Lexiscan infusion. Findings:The patient's resting baseline blood pressure was 121/78 mmHg with a heart rate of 52 bpm. After Lexiscan injection was no significant change in blood pressure. The maximum heart rate was 81 bpm. Resting baseline EKG showed sinus bradycardia with a heart rate of 52 low voltage and nonspecific T wave flattening. No ST changes or arrhythmia with stress test. Conclusion: 1. Stress EKG negative for ischemia 2. No Lexiscan induced chest pain or cardiac arrhythmia. 3. Normal blood pressure and heart rate response. 4. Nuclear myocardial perfusion scan pending; see separate report. Electronically Signed On 02-04-2025 18:12:31 LOCOMOTIVE BOILERMAKER by Joe Hansen M.D. [email or web address]
--- NOTE | 2025-02-04 07:31 | NMCV_ITS ---
NM rony perf SPECT r/s* [id number] James Villalta Age: 75 Gender: M : 1950 Exam Date: 02/04/2025 08:20 Ordering Phys: Dai Easton Technologist: AURELIA Gomez Exam [facility] Indications: CP STRESS TEST Please see separate stress test report in [facility] for full findings IMAGE PROTOCOL Rest/Stress 1 Lexiscan Day Radiopharmaceutical Dose (mCi) Administration Site Administered by Rest: Tc-99m 10.4 IV Liana Tejeda, WELLNESS DIRECTOR Sestamibi Stress:Tc-99m 32.5 IV Liana Mongegle, WELLNESS DIRECTOR Sestamibi Rest: 04-Feb-2025 60 Discovery 630 Stress: 04-Feb-2025 30 Discovery 630 0.4mg Lexiscan. Images obtained in supine and prone position. SPECT RESULTS Technical Quality: Good Raw Data Analysis: Normal Image Corrections: No attenuation or motion correction applied Summed Stress Score: 4 Summed Rest Score: 1 Summed Difference Score: 3 PERFUSION FINDINGS There is a small area of moderately reduced tracer counts in the apical inferolateral wall segment that is partially reversible on the rest images. FUNCTIONAL RESULTS (calculated via Gated SPECT) Stress Image LV EF (%): 72 Stress EDV (mL):126 TID: 1.1 Stress ESV (mL):35 FUNCTIONAL FINDINGS: There is normal left ventricular systolic function. IMPRESSIONS 1. There is a small area of either artifact or infarct with a small amount of soni-infarct ischemia in the apical inferior lateral wall segment. 2. Normal left ventricular systolic function Joe Hansen MD, FACC (Electronically Signed) Final Date: 04 February 2025 13:11 S
[2025-02-04 09:11] VITALS: BP 130/73; PULSE 64
== END 2025-02-04 07:28 | disposition home or self-care (01) ==
LOC: CDL 07:30
PROVIDERS: PCP Family Medicine; Visit Provider Nurse Practitioner Family
DX: I20.9 Angina pectoris, unspecified (principal); R07.9 Chest pain, unspecified; I25.2 Old myocardial infarction
CPT/HCPCS: 36415; 78452; 93017; 96374; A9500; J2785

== ENCOUNTER 2025-02-22 07:26 | Outpatient (CLI) | payer MEDICARE, OTHER, SELFPAY ==
[2025-02-22] VITALS (20 sets, daily range): BP systolic 90–226; BP diastolic 57–82; PULSE 51–71; RESP 12–18; TEMP 36.8; O2SAT 90–96; BMI 37.3
--- NOTE | 2025-02-22 07:30 | XACV_ITS ---
Exam Room: 2 Ht: 170 cm Wt: 108 kg BSA: 2.31 m2 Gender: Male : 1950 Any Known Allergies: No allergy information Exam Priority: Routine Procedure(s): Procedure Description: Diagnostic procedure Procedure Description: PCI procedure Procedure Description: Drug Eluting Coronary Stent Procedure Description: PTCA Procedure Description: Miscellaneous Procedure Description: Angio-Seal Procedure Description: Coronary Angiography Diagnostic Cath Status: Elective Diagnostic Findings * INDICATION: Chest pain/abnormal stress test. * Posterior Descending Right: obstructive 95-99% stenosis. * Left main artery is patent. LAD has patent prior stent. Has diffuse disease in the distal vessel. OM 1 is large sized vessel with patent stent. Distal left circumflex artery has severe diffuse disease supplying a small area. Small to medium sized ramus artery has severe disease. Diagonal artery has diffuse disease. RCA is patent. PDA has focal subtotal occlusion s/p PCI with 1 stent. * Coronary angiography shows right dominance. PCI Status: Elective Interventional Findings * Posterior Descending Right: 95-99% stenosis treated with a AB TREK 2.25X15 RX BALLOON, and MDCedrick Shabazz MIKHAIL 2.25X18 CLAUDIO. 0% residual stenosis, ROSARIO: 3 flow. * Procedure detail: We predilated the PDA stenosis with 2.25 x 15 mm semicompliant balloon. This was followed by placement of 2.25 x 18 mm resolute Bow drug-eluting stent. Final angiogram showed excellent stent expansion and no residual stenosis. Guidewire and guide catheter were removed. Patient left the Hoe Worker in a stable condition. Conclusions 1. Severe PDA stenosis s/p PCI with 1 stent. Medical therapy for diffuse disease in diagonal, ramus, distal left circumflex artery and distal LAD disease. 2. Posterior Descending Right was treated with a Balloon, and Drug Eluting Stent. Recommendations * Dual antiplatelet therapy with aspirin and plavix. * High intensity statin therapy. Interventional RX Recommendation: PCI w/o planned CABG Diagnostic RX Recommendation: PCI w/o planned CABG Anticoagulation: Heparin Pressures Phase:Rest AO : 90 / 58 ( 74 ) @ 8:38:00 AM 85 / 60 ( 73 ) @ 8:39:00 AM 85 / 61 ( 74 ) @ 8:42:00 AM 104 / 58 ( 79 ) @ 8:50:00 AM 94 / 58 ( 76 ) @ 9:06:00 AM 98 / 61 ( 78 ) @ 9:06:00 AM Clinical Evaluation EBL: 5mL-10mL Procedural Details Procedure Consent Obtained. Pre-Procedure Time Out. Identified patient by full name and date of as verbalized by the patient/guarantor. Does the consent match the physician's order: Yes. Accurate & Complete Informed Consent: Yes. Inpatient/Outpatient History & Physical on Chart: Yes. If H&P is completed, is and addenduem needed: No; If yes, is the addendum complete: N/A. Visualize and Verify Site with Patient/Guarantor: N/A. Relevant Radiology Images available: Yes. Pre-op teaching completed and patient verbalized understanding. The risks, benefits, and alternatives of sedation and/or procedure were discussed by physician. The patient agrees to continue. Procedure started. Current Diagnosis : Chest Pain. [facility] Clinical Fraility Score: 3: Managing Well. Hoe Worker Indications: Worsening Angina. Chest Pain Symptom Assessment: Atypical Angina. Correct patient, site and procedure confirmed by cath team. Current diagnosis: Chest Pain. PERRLA. Strong, equal hand ab initio etl developer bilaterally. Lungs clear x 5 lobes. IV Site on Arrival: 20 gauge in the left anticubital. IV Fluids: 0.9% NaCl at KVO. 0 mL infused prior to laborer pie bakery. Pre Procedural Pulses: bilateral dorsalis pedis was 3+. Pre Procedural Pulses: bilateral posterior tibial was 3+. Pre Procedural Pulses: bilateral radial was 3+. Oxygen started at 2liters/min via nasal canula. bilateral groins was prepped with chloroprep then draped in the usual sterile fashion. Baseline sample Acquired. HR: 50 BPM. Physician arrived. Physician scrubbed in. Immediate Pre-Procedure Time Out. Correct Patient: Yes; Correct Procedure: Yes; Correct Site: Yes; Correct Patient Position: Yes; Correct Supplies: Yes; Dried Flammable Prep: Yes; Blood Products Available: N/A;. Lidocaine 1% infiltrated to the right groin. Arterial access obtained with micropuncture set. A 5 thai JL4 catheter in over wire. Multiple views taken of left coronary artery. Catheter removed over the standard wire. A 5 thai JR4 catheter in over wire. Multiple views taken of right coronary artery. Catheter removed over the standard wire. 6 thai JR 4 guide catheter was inserted over the wire. Guide catheter out. The short 6Fr sheath exchanged for a 45cm Flexor sheath. 6 thai JR 4 guide catheter was inserted over the wire. Runthrough guidewire was advanced through the guide catheter to lesion in the PDA. Inflation number : 1 A AB TREK 2.25X15 RX BALLOON was prepped and advanced across the R PDA , then inflated to 12 JESSICA for 0:13 seconds. Inflation number: 2 The AB TREK 2.25X15 RX BALLOON was reinflated across the R PDA, to 12 JESSICA for 0:12 seconds. Balloon out. Inflation Number : 3 A MDT R MIKHAIL 2.25X18 CLAUDIO -Lot Number# [id number] 11/10/2026 was prepped and advanced across the R PDA. The stent was deployed at 12 JESSICA for 0:15 seconds. Stent balloon out over wire. Results checked. Guide catheter out. Wire out. The long sheath exchanged for a short 6Fr sheath. ACT drawn. Results 317 seconds. Therapeutic limits - pre-heparin administration 90-150 seconds and monitoring heparin during a vascular procedure >250 seconds. A Right femoral angiogram was performed to determine safe placement of closure device. Lidocaine 1% infiltrated to the right groin. A Angio-Seal VIP ([facility] [place]) was successful obtaining hemostatsis at the Right Femoral artery insertion site. Vital chart was stopped. Post Procedure: Pulses reassessed and unchanged. PERRLA. Strong, equal hand ab initio etl developer bilaterally. No VTE prophylaxis required. Medication's Wasted: Lidocaine 1% = 10 mL. Medication's Wasted: Other = Fentanyl 50 mcg. Total IV fluids: 50 mL. Post-op diagnosis: Stent to RPDA. Complications: None. Estimated blood loss: 5mL-10mL. Responsiveness - Normal response to verbal stimuli; alert and oriented, PERRLA. Airway - Unaffected, no intervention required; spontaneous ventilation. Circulation: W/N/L, pulses unchanged. Nausea/Vomiting: No. Procedure completed. Patient transferred by stretcher to CPRU. Access Site Site: Right Femoral artery Sheath Size: 6 Fr Hemostasis Method: Angio-Seal VIP ([facility] [place]) Hemostasis Success: Successful Procedure Medications Start: 8:34 AM Stop: 8:34 AM Medication: Versed Amount: 1 mg Route: I.V. Start: 8:34 AM Stop: 8:34 AM Medication: Fentanyl Amount: 50 mcg Start: 8:46 AM Stop: 8:46 AM Medication: Versed Amount: 1 mg Route: I.V. Start: 8:48 AM Stop: 8:48 AM Medication: Heparin Amount: 9000 units Route: I.V. Start: 9:07 AM Stop: 9:07 AM Medication: Heparin Amount: 1000 units Route: I.V. Start: 9:08 AM Stop: 9:08 AM Medication: Plavix Amount: 300 mg Route: P.O. I, the attending physician, have reviewed and verified all procedure medications. Yes, all medications given per verbal order History/Risk Factors Hypertension: Yes Dyslipidemia: Yes Peripheral Arterial Disease (PAD): No Myocardial Infarction (FL): No Obesity: No Renal Disease: No Tobacco Use: Former Prior Interventions PCI: No CABG: No Valve Surgery: No Report Signatures Finalized by Sanju Taylor MD on 03/08/2025 11:49 AM
[2025-02-22 08:00] LABS: Hematocrit 43.8 % (37-53); Hemoglobin 14.70 g/dL (11.27-16.99); Mean Corpuscular HGB Conc 33.6 g/dL (30-55); Mean Corpuscular Hemoglobin 29.4 pg (27-33); Mean Corpuscular Volume 87.6 fl (82-101); Nucleated Red Blood Cells % 0 %; Platelet Count 213 10^3/cmm (157-399); Red Blood Count 5.00 10^6/uL (3.85-5.65); White Blood Count 7.68 10^3/uL (3.29-11.43)
[2025-02-22 08:19] LABS: Blood Urea Nitrogen 14 mg/dL (8-23); Calcium 9.7 mg/dL (8.5-10.5); Carbon Dioxide 24 mmol/L (22-29); Chloride 101 mmol/L (98-107); Glucose 150 mg/dL (65-115); Osmolality Calculated 289 mOsm/kg (285-295); Sodium 138 mmol/L (136-145)
[2025-02-22 08:22] LABS: Anion Gap 17.3 (5-19); Potassium 4.3 mmol/L (3.5-5.1)
--- NOTE | 2025-02-22 08:31 | W.PM.OPSUD ---
Surgery/Procedure H&P Update DATE OF PROCEDURE: February 22, 2025 DATE H&P PERFORMED: 02/02/25 H&P UPDATE INFORMATION: I have reviewed H&P completed within last 30 days, I have examined patient prior to procedure and Changes to prior documentation as noted here CHANGES TO PREVIOUS DOCUMENTATION: Abnormal stress test PREOP DIAGNOSIS: Worsening angina/abnormal stress test PRIMARY INDICATION FOR PROCEDURE: Worsening angina/abnormal stress test PLANNED PROCEDURE: Operation Date: 02/22/25 08:30 Proposed Procedures p Cardiac Catheterization(Left) - Sanju Taylor M.D Possible percutaneous coronary intervention PATIENT REASSESSED PRIOR TO SEDATION, WITH NO CHANGE NOTED: Yes PHYSICAL EXAM: alert, oriented x 3, clear to auscultation bilaterally and regular rate & rhythm AIRWAY EVAL/ANESTHESIA PLAN: normal airway, ASA III, Local Anesthesia, Risks, benefits & alternatives of sedation and/or procedure discussed and Patient agrees to continue as planned ADDITIONAL INFORMATION: Modearte sedation
--- NOTE | 2025-02-22 09:27 | SUR.PHASEI ---
POST CATH NOTE Received patient from landscaping and groundskeeping laborer. Status post cardiac catheterization via the right femoral approach. The site is angiosealed and is hemostatic. Verbal post cath instuctions went over with the patient/family. They understood well. No pain reported. MD stated to resume fluids at pre cath rate of 75 cc/hr. Done as ordered and is infusing without difficulty. No pain reported at this time. Holding pending bed availability.
--- NOTE | 2025-02-22 09:29 | PM.PROC ---
Procedure Note: Date of procedure: 02/22/25 Pre-procedure diagnosis: Chest pain/abnormal stress test Post-procedure diagnosis: other (Severe PDA stenosis s/p PCI with 1 stent) Procedure: Left main artery is patent. LAD has patent prior stent. Has diffuse disease in the distal vessel. OM 1 is large sized vessel with patent stent. Distal left circumflex artery has severe diffuse disease supplying a small area. Small to medium sized ramus artery has severe disease. Diagonal artery has diffuse disease. RCA is patent. PDA has a focal subtotal occlusion. s/p PCI with 1 stent Dual antiplatelet therapy with aspirin and plavix High intensity statin therapy Medical therapy for diffuse disease in diagonal, ramus, distal left circumflex and distal LAD disease Performing Provider: Sanju Taylor Estimated blood loss (mL): 10 Complications: None Coding Level of Care Code Acute Code for Chg Fwd
--- NOTE | 2025-02-22 09:41 | SUR.PHASEI ---
post cath fluids IV fluids set at 75 cc/hr post cath. Plan 12 hours- then D/C
[2025-02-23] MEDS: ranolazine (12HR) 500 mg Tablet PO (04:28)
[2025-02-23 05:00] LABS: Hematocrit 40.7 % (37-53); Hemoglobin 13.60 g/dL (11.27-16.99); Mean Corpuscular HGB Conc 33.4 g/dL (30-55); Mean Corpuscular Hemoglobin 30.2 pg (27-33); Mean Corpuscular Volume 90.2 fl (82-101); Nucleated Red Blood Cells % 0 %; Platelet Count 175 10^3/cmm (157-399); Red Blood Count 4.51 10^6/uL (3.85-5.65); White Blood Count 7.93 10^3/uL (3.29-11.43)
[2025-02-23 05:21] LABS: Anion Gap 15.7 (5-19); Blood Urea Nitrogen 14 mg/dL (8-23); Calcium 9.1 mg/dL (8.5-10.5); Carbon Dioxide 24 mmol/L (22-29); Chloride 103 mmol/L (98-107); Glucose 139 mg/dL (65-115); Osmolality Calculated 291 mOsm/kg (285-295); Potassium 3.7 mmol/L (3.5-5.1); Sodium 139 mmol/L (136-145)
[2025-02-23 06:00] VITALS: PULSE 63
--- NOTE | 2025-02-23 11:50 | P.DS_ITS ---
<Statement entered by Sanju Taylor M.D - 03/07/25 15:57> Patient was cared for in conjunction with an advanced practice practitioner.? I reviewed the chart and all pertinent data including imaging, telemetry, and laboratory results.? I discussed the patient in detail with the advanced practice practitioner.? Please see? their documentation for discharge note, testing results and agreed upon plan of care for the patient. Discharge Providers Date of Admission: 02/22/2025 Date of Discharge: February 23, 2025 Attending Provider at Admission: Dr. Taylor Attending Provider at Discharge: Sanju Taylor M.D Primary Care Provider: Dustin Almendarez MD Reason for Visit Reason for Visit: [id number] Brief History: This is a very pleasant 75-year-old gentleman who has a history of CAD status post stenting to the OM and proximal mid LAD in 2021. He came into the clinic reporting reoccurrence of left-sided chest pain near the left shoulder which occurred every few days and seem to be more frequent than before lasting most of the day. His pain had previously resolved after stent placement. Patient was unsure if the pain occurred with activity. Stress test was obtained that showed a small area of the either artifact or infarct with small amount of soni-infarct ischemia in the apical inferior lateral wall segment. Patient was scheduled for left heart cath. Hospital Course Hospital Course Patient underwent angiogram that showed left main patent LAD patent prior stent has diffuse disease in the distal vessel, OM1 is large sized vessel with patent stent, distal left circumflex has severe diffuse disease supplying a small area. Small to medium size ramus artery has severe disease, diagonal artery has diffuse disease RCA is patent PDA has a focal subtotal occlusion status post PCI with 1 stent. Patient tolerated procedure well without complications. He will be discharged home in stable to improved condition on aspirin and Plavix as well as high-dose statin therapy. Will follow-up in the clinic in 7 to 10 days for further evaluation and treatment. Physical Exam Narrative: General: No apparent distress, healthy appearing, well nourished HENMT: normoceophalic Muskuloskeletal: Full ROM Respiratory: Normal respiratory effort, clear to auscultation bilaterally throughout all lung calvillo, no use of accessory muscles Cardio: No JVD, regular rate, regular rhythm, S1 S2 normal, no murmurs, peripheral pulses 2+ radial palpated bilaterally Extremities: no cyanosis or edema Neuro: Alert and oriented x4, no focal motor deficits Psych: Affect normal Skin: Right groin puncture site clean, dry, intact w/o s/s of hematoma Discharge Data Studies Completed and Pending Pending at discharge Category Date Time Status 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 Routine Exams 02/22/25 07:30 Taken Laboratory Results WBC 7.93 10^3/uL (3.29-11.43) 02/23/25 04:23 RBC 4.51 10^6/uL (3.85-5.65) 02/23/25 04:23 Hgb 13.60 g/dL (11.27-16.99) 02/23/25 04:23 Hct 40.7 % (37-53) 02/23/25 04:23 MCV 90.2 fl (82-101) 02/23/25 04:23 MCH 30.2 pg (27-33) 02/23/25 04:23 MCHC 33.4 g/dL (30-55) 02/23/25 04:23 RDW 13.8 % (12.1-15.1) 02/23/25 04:23 Plt Count 175 10^3/cmm (157-399) 02/23/25 04:23 MPV 10.4 fL (7.4-10.4) 02/23/25 04:23 Neut % (Auto) 72.4 % 02/23/25 04:23 Lymph % (Auto) 11.0 % 02/23/25 04:23 [place] % (Auto) 8.6 % 02/23/25 04:23 Eos % (Auto) 6.7 % 02/23/25 04:23 Baso % (Auto) 0.8 % 02/23/25 04:23 Neut # (Auto) 5.75 10^3/uL (1.8-7.7) 02/23/25 04:23 Lymph # (Auto) 0.9 10^3/uL (0.8-4.8) 02/23/25 04:23 [place] # (Auto) 0.7 10^3/uL (0.2-0.9) 02/23/25 04:23 Eos # (Auto) 0.5 10^3/uL (0.0-0.8) 02/23/25 04:23 Baso # (Auto) 0.1 10^3/uL (0.0-0.1) 02/23/25 04:23 Nucleated RBC % (auto) 0 % 02/23/25 04:23 Nucleated RBCs # 0.0 /100WBC 02/23/25 04:23 Sodium 139 mmol/L (136-145) 02/23/25 04:23 Potassium 3.7 mmol/L (3.5-5.1) 02/23/25 04:23 Chloride 103 mmol/L (98-107) 02/23/25 04:23 Carbon Dioxide 24 mmol/L (22-29) 02/23/25 04:23 Anion Gap 15.7 (5-19) 02/23/25 04:23 BUN 14 mg/dL (8-23) 02/23/25 04:23 Creatinine 1.1 mg/dL (0.7-1.2) 02/23/25 04:23 GFR Calculation Not Reportable 02/23/25 04:23 Glucose 139 mg/dL (65-115) H 02/23/25 04:23 Calculated Osmolality 291 mOsm/kg (285-295) 02/23/25 04:23 Calcium 9.1 mg/dL (8.5-10.5) 02/23/25 04:23 Procedures Performed Date of procedure: 02/22/25 Pre-procedure diagnosis: Chest pain/abnormal stress test Post-procedure diagnosis: other (Severe PDA stenosis s/p PCI with 1 stent) Procedure: Left main artery is patent. LAD has patent prior stent. Has diffuse disease in the distal vessel. OM 1 is large sized vessel with patent stent. Distal left circumflex artery has severe diffuse disease supplying a small area. Small to medium sized ramus artery has severe disease. Diagonal artery has diffuse disease. RCA is patent. PDA has a focal subtotal occlusion. s/p PCI with 1 stent Dual antiplatelet therapy with aspirin and plavix High intensity statin therapy Medical therapy for diffuse disease in diagonal, ramus, distal left circumflex and distal LAD disease Performing Provider: Sanju Taylor Estimated blood loss (mL): 10 Complications: None Vitals Last Vital Signs Temp 98.2 F 02/22/25 07:50 Pulse 63 02/23/25 06:00 Resp 16 02/22/25 23:52 BP 131/75 02/22/25 23:52 Pulse Ox 94 02/22/25 23:52 O2 Del Method Room Air 02/22/25 23:52 Discharge Plan Discharge Patient Disposition: Home Prescriptions: Continued lisinopril 20 mg tablet 20 mg PO DAILY bisoprolol-hydrochlorothiazide 10-6.25 mg tablet 1 tab PO DAILY isosorbide mononitrate 30 mg tablet extended release 24 hr 60 mg PO DAILY ranolazine 500 mg tablet extended release 12 hr 500 mg PO BID amlodipine 10 mg tablet 10 mg PO QAM levothyroxine 125 mcg tablet 125 mcg PO QAM niacin 500 mg Tablet 1,750 mg PO DAILY PRN (Reason: unknown) omeprazole 20 mg capsule,delayed release(DR/EC) 20 mg PO BEDTIME atorvastatin 40 mg tablet 80 mg PO QAM 30 Days Qty: 30 0RF clopidogrel [Plavix] 75 mg tablet 75 mg PO DAILY Qty: 90 3RF aspirin 81 mg tablet,delayed release (DR/EC) 81 mg PO DAILY Qty: 90 3RF Held metformin 500 mg tablet extended release 24 hr 750 mg PO QAM Hold Instructions: Resume on 02/25/25. Discharge Order = DC NOW: Discharge Order (Routine); Ordered 02/23/25 Ordered By: Ceci Mohan Referrals: Ceci Mohan NP [Nurse Practitioner, Cardiology] - 03/08/25 8:00 am Dustin Almendarez MD [Primary Care Provider, Family Practice] - 03/04/25 8:50 am Patient Instructions: Coronary Angioplasty (DC), How to Stop Smoking (DC), Coronary Intravascular Stent Placement (DC), Post Angiogram Home Care Instructions Activity Restrictions/Additional Instructions: Discussed with patient no heavy lifting more than a gallon of milk as well as going up or down steps for 3 days. No driving for 3 days. Monitor for and report signs or symptoms of bleeding. Monitor for and report s/s of infection such as fever 101 or greater, swelling, redness or pain to the groin. Print Language: [place] Discharge Date/Time: 02/23/25 09:22 Discharge Attestations Time Spent in Discharge Care*: less than 30 min Quality Metrics Clinical Quality Measures [ No reported AMI, CVA or VTE this stay] Coding Level of Care Code Acute Code for Chg Fwd
== END 2025-02-23 09:22 | disposition home or self-care (01) ==
LOC: CCL 07:29 → CSU 17:28
PROVIDERS: Nurse Practitioner Family; PCP Family Medicine; Visit Provider Internal Medicine
PROC: 02703ZZ Dilation of Coronary Artery, One Artery, Percutaneous Approach (ICD-10-PCS; CPT 92920; 2025-02-22 08:30)
DX: I25.118 Atherosclerotic heart disease of native coronary artery with other forms of angina pectoris (principal); Z95.5 Presence of coronary angioplasty implant and graft; I25.82 Chronic total occlusion of coronary artery; I10 Essential (primary) hypertension; E78.5 Hyperlipidemia, unspecified; Z87.891 Personal history of nicotine dependence; E11.9 Type 2 diabetes mellitus without complications; Z79.82 Long term (current) use of aspirin; Z79.84 Long term (current) use of oral hypoglycemic drugs; K21.9 Gastro-esophageal reflux disease without esophagitis; Z79.02 Long term (current) use of antithrombotics/antiplatelets; E03.9 Hypothyroidism, unspecified
CPT/HCPCS: 36415; 80048; 85025; 85347; 93454; 99152; 99153; C1725; C1760; C1769; C1874; C1887; C1894; C9600; G0269; J1644; J2250; J3010; J7030; J9999; Q0163; Q9967